=== PATIENT | female | born 2005 ===

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

== ENCOUNTER 2023-02-27 10:18 | Emergency (ER) | payer OTHER, SELFPAY ==
[2023-02-27 10:25] VITALS: BP 138/62; PULSE 93; RESP 18; TEMP 36.7; O2SAT 98; BMI 35.5
--- NOTE | 2023-02-27 10:27 | ED.BURNSMOKE ---
HPI - Burn/Smoke Inhalation General Chief complaint: Burn/Smoke Inhalation Stated complaint: R Hand Burn Work Injury 02/27/23 Time Seen by Provider: 02/27/23 10:22 Source: patient and family Mode of arrival: ambulatory Limitations: no limitations History of Present Illness HPI Narrative: 17-year-old female with history of eczema presents to the ER for evaluation a burn to her right forearm sustained about 15 minutes ago while at work. She states she works at [employer] and hot coffee spilled onto her right distal forearm. It caused immediate pain and burning sensation. She rinse the area and put on ointment that she uses for her eczema. She states she has ongoing burning sensation. No blistering or significant skin color changes. no other injuries. No difficulty extending or flexing the right wrist. MD Complaint: burn Onset (ago): minute(s) Type of Exposure: hot liquid Smoke Inhalation: none Location - Extremities: right: forearm Severity: moderate Severity scale (1-10): 5 Associated symptoms: denies other symptoms Rule if 9: 1. 1% Related Data Allergies Allergy/AdvReac Type Severity Reaction Status Date / Time blue dye [BLUE DYE] Allergy Unknown UNKNOWN Verified 02/27/23 10:28 nut - unspecified [nut] Allergy Unknown UNKNOWN Verified 02/27/23 10:28 pistachio nut [PISTACHIO] Allergy Unknown UNKNOWN Verified 02/27/23 10:28 Review of Systems Review of Systems: Yes all other systems are reviewed and are negative [facility] Social History Social History (System 07/06/21 @ 11:50 by Sosa Jimenez) Advance Directives: No Physical Exam Vital Signs: Vital Signs: Last Vital Signs Temp 98.0 F 02/27/23 10:25 Pulse 93 02/27/23 10:25 Resp 18 02/27/23 10:25 BP 138/62 02/27/23 10:25 Pulse Ox 98 02/27/23 10:25 O2 Del Method Room Air 02/27/23 10:25 BMI result Body Mass Index 35.5 Appearance: Alert. Oriented X3. No acute distress. HEENT: normal inspection CVS: Normal heart rate and rhythm. Pulses normal. Respiratory: No respiratory distress. Skin: Skin warm and dry. Skin with hypopigmentation areas of the upper extremities Normal skin turgor. No rashes.The dorsal aspect of the right distal forearm with mild erythema and tenderness, no blistering, blanches. Extremities: no swelling of the extremities, no joint swelling, normal ROM Neuro: Oriented X 3. No motor deficit. No sensory deficit. Medical Decision Making Medical Decision Making MDM Narrative: 17-year-old female presents the ER for evaluation of a burn to her right forearm sustained with hot coffee 15 minutes prior to arrival. Exam is consistent with a superficial burn with mild erythema, no blistering. It is blanchable with no evidence of deeper penetration. Cool sterile saline was applied. Patient and family counseled on burn management. Stable for discharge home. Differential Diagnosis Differential Diagnoses: The differential diagnosis associated with the presentation includes superficial burn, partial thickness burn, full thickness burn Independent Historian Clinical information obtained from an independent historian. History obtained from or confirmed by: Parent Prescription Management I considered prescription management with: Pain Medication and Antibiotic Chronic Conditions Patient?s care impacted by: Other ( Eczema) Critical Care Time Critical Care Time Critical Care Time: No Discharge Plan Discharge Clinical Impression: First degree burn Patient Disposition: Home, Self-Care Instructions: Superficial Burn (DC) Additional Instructions: use cool compresses as need for pain use topical aloe as needed take motrin or tylenol as needed for pain Stand Alone Forms: Work/School Release
== END 2023-02-27 10:42 | disposition home or self-care (01) ==
PROVIDERS: Emergency Provider Emergency Medicine Emergency Medical Services; PCP Pediatrics
DX: T22.111A Burn of first degree of right forearm, initial encounter (principal); T31.0 Burns involving less than 10% of body surface; X10.0XXA Contact with hot drinks, initial encounter; Y93.89 Activity, other specified; Y92.89 Other specified places as the place of occurrence of the external cause; Y99.9 Unspecified external cause status
CPT/HCPCS: 99282

== ENCOUNTER 2023-06-06 12:35 | Emergency (ER) | payer OTHER, SELFPAY ==
--- NOTE | ~2023-06-06 | XR_ITS ---
EXAMINATION: XR KNEE, RIGHT CLINICAL INFORMATION: Pain COMPARISON: None available. TECHNIQUE: Four views of the right knee. FINDINGS: No fracture or joint effusion. Alignment is anatomic. Joint spaces are maintained. No abnormal soft tissue calcification. XR/XR knee RT 3V IMPRESSION: Normal right knee.
--- NOTE | 2023-06-06 12:40 | ED_ITS ---
HPI - General Adult General Chief complaint: Extremity Injury, Lower Stated complaint: R knee pain Time Seen by Provider: 06/06/23 12:40 Source: patient Mode of arrival: ambulatory Limitations: no limitations History of Present Illness HPI narrative: Patient is a 17 year old assigned female at with no reported medical history presenting to the emergency department today with right knee pain. Patient states that over the last 4 days she has noticed right knee pain. Patient denies any dizziness, lightheadedness, abdominal pain, nausea, vomiting, fever, chills, blurry vision, double vision, loss of vision, chest pain, difficulty breathing, shortness of breath, back pain, night sweats, pain with urination, increased urinary frequency, increased urinary urgency, blood in her urine or stool, syncope or a near syncopal episode, recent trauma or falls, bowel incontinence, bladder incontinence, bowel retention, bladder retention, or any other complaints at this time. Onset (ago): day(s) (4) Location: right and lower extremity Radiation: non-radiation Severity: mild Severity scale (1-10): 3 Quality: aching and dull Pain Consistency: constant Relieving factors: none Exacerbating factors: none Associated symptoms: denies other symptoms Treatments prior to arrival: none Related Data Allergies Allergy/AdvReac Type Severity Reaction Status Date / Time blue dye [BLUE DYE] Allergy Unknown UNKNOWN Verified 02/27/23 10:28 nut - unspecified [nut] Allergy Unknown UNKNOWN Verified 02/27/23 10:28 pistachio nut [PISTACHIO] Allergy Unknown UNKNOWN Verified 02/27/23 10:28 Review of Systems Constitutional: Constitutional: Reports no additional constitutional complaints, Denies chills, Denies fever(s) and Denies night sweats Eyes: Eyes: Reports no additional eye complaints, Denies blurry vision, Denies change in vision, Denies diplopia, Denies eye discharge, Denies loss of vision and Denies eye pain ENT: Denies dizziness Cardiovascular: Cardiovascular: Reports no additional cardiovascular complaints, Denies chest pain, Denies lightheadedness, Denies Loss of Consciousness and Denies dyspnea Respiratory: Respiratory: Reports no additional respiratory complaints and Denies dyspnea Gastrointestinal: Gastrointestinal: Reports no additional gastrointestinal complaints, Denies abdominal pain, Denies melena, Denies hematochezia, Denies change in bowel habits and Denies change in stool character Genitourinary: Genitourinary: Denies hematuria, Denies urinary frequency, Denies dysuria, Denies urinary incontinence, Denies urinary hesitancy and Denies urinary urgency Musculoskeletal: Musculoskeletal: Reports no additional musculoskeletal complaints, Denies numbness and Denies tingling Comments: right knee pain Neurologic: Denies dizziness, Denies loss of vision, Denies numbness and Denies tingling Psychiatric: Psychiatric: Reports no additional psychiatric complaints Endocrine: Endocrine: Reports no additional endocrine complaints Hematologic/Lymphatic: Hematologic/Lymphatic: Reports no additional hematologic/lymphatic complaints Allergic/Immunologic: Allergic/Immunologic: Reports no additional allergic/immunologic complaints PMFSH Past Medical History Attestation statement: The following information was validated with the patient. Source: old records reviewed and nursing notes reviewed Social History Social History Smoked in Last 30 Days: No Use of substances other than those prescribed or required for medical reasons: No Advance Directives: No Advance Directives Information Provided: No Physical Exam ED Vital Signs: Vital Signs - 24 hr 06/06/23 13:04 Temperature 96.7 F L Pulse Rate 86 Respiratory Rate 16 Blood Pressure 115/64 Pulse Oximetry 99 Oxygen Delivery Method Room Air BMI result Body Mass Index 33.9 Const General: cooperative, no acute distress, alert and awake Nutritional Appearance: well nourished Orientation/consciousness: patient oriented x3 Limitations: no limitations HENMT Head: Yes normal to inspection and Yes atraumatic Ears: hearing grossly normal bilaterally and external ears normal General nose exam: Normal external nose present, no nasal discharge noted and no epistaxis Face and sinus: Yes normal facial exam, No abrasion and No laceration Mouth: Normal oral and palatal mucosa present, no drooling and no muffled voice Eyes General: appearance normal, both eyes and all related structures Periorbital: periorbital findings normal Eyelids: Yes eyelids normal Conjunctivae: conjunctivae normal Pupils: Equal, round and reactive pupils present EOM: EOMs intact bilaterally Neck Neck: Yes normal visual inspection, Yes full ROM and Yes no lymphadenopathy Chest Chest palpation & inspection: normal inspection of the chest Resp Effort & Inspection: normal respiratory effort and able to speak in complete sentences GI Inspection: Yes normal to inspection Neuro General: patient oriented x3 and moves all extremities Cranial nerves: Yes Equal, round and reactive pupils present Cognition (Neuro): normal cognition Motor exam (neuro): 5/5 motor strength present throughout Sensory Exam: Normal double simultaneous stimulation for sensation Coordination: [id number] test normal Extrem General: Yes normal to inspection, Yes full ROM and Yes capillary refill normal Psych Appearance: grossly normal Mental Status: mental status grossly normal Affect: normal affect Attitude: cooperative Thought process: Normal thought process present Thought content: Normal thought content present Insight: Good insight present (Psych) Medications Administered Discontinued Medications Generic Name Dose Route Start Last Admin Trade Name Mary PRN Reason Stop Dose Admin Ketorolac Tromethamine 15 mg 06/06/23 14:04 06/06/23 14:21 Ketorolac Tromethamine 15 Mg/Ml Vial IM 06/06/23 14:05 15 mg ONCE ONE Administration Medical Decision Making Medical Decision Making MDM Narrative: Patient is a 17 year old assigned female at with no reported medical history presenting to the emergency department today with right knee pain. Patient's physical exam was unremarkable. Patient's right knee x-ray showed no acute process. I explained my physical exam findings as well as all test results to the patient. I answered all questions asked by the patient. Patient received IM Toradol which she stated helped her symptoms significantly. I stressed the importance of the patient taking her medication as prescribed. I stressed the importance of the patient following up with her primary care provider and an orthopedic provider. I stressed the importance of the patient returning to the emergency department immediately if her symptoms were to worsen or if she were to develop any dizziness, shortness of breath, difficulty breathing, chest pain, blurry vision, loss of vision, nausea, vomiting, abdominal pain, fever, chills, back pain, or any other complaints. Patient verbalized agreement and understanding with this treatment plan and discharge. Differential Diagnosis Differential Diagnoses: The differential diagnosis associated with the presentation includes Right knee pain Osteoarthritis Patellofemoral syndrome Independent Interpretation I performed an independent interpretation of an: Plain X-Ray Interpretation: My interpretation is in agreement with the radiologist's impression of this imaging study. EXAMINATION: XR KNEE, RIGHT CLINICAL INFORMATION: Pain COMPARISON: None available. TECHNIQUE: Four views of the right knee. FINDINGS: No fracture or joint effusion. Alignment is anatomic. Joint spaces are maintained. No abnormal soft tissue calcification. XR/XR knee RT 3V IMPRESSION: Normal right knee. Dictated By: Jennifer Brunner MD Signed By: Electronically signed by Jennifer Brunner MD 06/06/23 7839 Radiology Impression Discussion of test interpretation with radiology: I have reviewed the radiologist's reading. Discharge Plan Discharge Clinical Impression: Knee pain Patient Disposition: Home, Self-Care Instructions: Knee Pain (ED) Additional Instructions: Follow up with your primary care provider. Return to the emergency department immediately if your symptoms worsen or if you develop any dizziness, shortness of breath, difficulty breathing, chest pain, blurry vision, loss of vision, na usea, vomiting, abdominal pain, fever, chills, back pain, or any other complaints. Referrals: [facility] [place] Family Medicine [Provider Group] (Call to establish and follow up with a [facility] care provider. If you already have a primary care provider, please follow up with them.) [facility] [place] Primary Care, Yann [Provider Group] (Call to establish and follow up with a primary care provider. If you already have a primary care provider, please follow up with them.) [facility] [place] Primary Care,Zafar [Provider Group] (Call to establish and follow up with a primary care provider. If you already have a primary care provider, please follow up with them.) [facility] [Provider Group] (Call to establish and follow up with an orthopedic provider.) Stand Alone Forms: Work/School Release Interventions: ED Discharge Assessment Last Done: 06/06/23 14:28 Print Language: Tamazight
[2023-06-06 13:04] VITALS: BP 115/64; PULSE 86; RESP 16; TEMP 35.9; O2SAT 99; BMI 33.9
[2023-06-06] MEDS: Ketorolac Tromethamine 15 MG/ML VIAL IM (14:21)
== END 2023-06-06 14:30 | disposition home or self-care (01) ==
PROVIDERS: Emergency Provider Emergency Medicine Emergency Medical Services; PCP Pediatrics
DX: M25.561 Pain in right knee (principal)
CPT/HCPCS: 73562; 96372; 99284; J1885

== ENCOUNTER 2023-06-16 19:24 | Emergency (ER) | payer OTHER, SELFPAY ==
--- NOTE | ~2023-06-16 | US_ITS ---
EXAMINATION: US PELVIS CLINICAL INFORMATION: Lower pelvic pain. COMPARISON: None available. TECHNIQUE: Ultrasound of the pelvis is performed using transabdominal transducers along with Doppler. Transvaginal imaging was declined by the patient. FINDINGS: Uterus: The uterus is anteverted and measures 7.6 x 3.8 x 5.4 cm. The double wall endometrial thickness is 16 mm. Endometrium is homogeneous The uterus is smooth in contour and has normal myometrial echogenicity. No visible fibroid. Adnexa: Both ovaries are visualized. There is normal color flow to the adnexa. There is no ovarian torsion. There is a small to moderate amount of intraperitoneal free fluid. Right ovary measures 2.4 x 3 x 3.5, 18.7 mL. There is a dominant, simple appearing 2.2 x 2 x 1.9 cm follicular cyst. No follow-up imaging is recommended. Left ovary measures 4.5 x 4 x 3.1 cm, 29.2 mL. There is a dominant 2.7 x 2.5 x 2.7 cm simple appearing cyst. No follow-up imaging is recommended. US/US pelvic complete IMPRESSION: Small to moderate amount of free fluid in the pelvis, possibly physiologic. Otherwise normal pelvic ultrasound. No evidence of ovarian torsion.
[2023-06-16 19:28] VITALS: BP 120/65; PULSE 98; RESP 16; TEMP 36.7; O2SAT 96; BMI 34.7
--- NOTE | 2023-06-16 19:29 | ED_ITS ---
HPI - Abdominal Pain General Chief Complaint: Abdominal Pain Stated Complaint: abd cramping Time Seen by Provider: 06/16/23 21:00 Source: patient Mode of arrival: ambulatory History of Present Illness HPI narrative: Intermittent left lower abdominal pain, denies vaginal discharge, no hematuria or dysuria or frequency, states that she is two weeks into her cycle, no prior history of ovarian cysts MD elicited complaint: abdominal pain Onset (ago): hour(s) Pain Consistency: intermittent Location: LLQ Severity: mild Related Data Previous Rx's Medication Instructions Recorded naproxen 500 mg tablet (Naprosyn) 500 mg PO BID #20 tabs 06/16/23 Allergies Allergy/AdvReac Type Severity Reaction Status Date / Time blue dye [BLUE DYE] Allergy Unknown UNKNOWN Verified 02/27/23 10:28 nut - unspecified [nut] Allergy Unknown UNKNOWN Verified 02/27/23 10:28 pistachio nut [PISTACHIO] Allergy Unknown UNKNOWN Verified 02/27/23 10:28 Review of Systems Review of Systems Yes all other systems are reviewed and are negative Denies Sensory deficit (Neuro) [facility] Social History Social History Alcohol intake: never Smoked in Last 30 Days: No Use of substances other than those prescribed or required for medical reasons: No Advance Directives: No Advance Directives Information Provided: No Patient : No Physical Exam ED Vital Signs: Vital Signs - 24 hr 06/16/23 19:28 06/16/23 20:53 06/16/23 23:16 Temperature 98.0 F 97.8 F 98.5 F Pulse Rate 98 98 98 Respiratory Rate 16 18 18 Blood Pressure 120/65 125/75 121/65 Pulse Oximetry 96 100 99 Oxygen Delivery Method Room Air Room Air Room Air BMI result Body Mass Index 34.7 Const General: healthy appearing Nutritional Appearance: average body habitus Orientation/consciousness: oriented to person and patient oriented x3 Limitations: no limitations HENMT Head: Yes normal to inspection Ears: external ears normal General nose exam: Normal external nose present Mouth: Normal oral and palatal mucosa present and oropharynx normal Throat: Yes posterior oropharynx normal Eyes General: appearance normal, both eyes and all related structures Neck Neck: Yes normal visual inspection Chest Chest palpation & inspection: normal inspection of the chest Resp Auscultation: clear to auscultation bilaterally Cardio Jugular venous distension: no JVD Rate: regular rate Rhythm: regular rhythm Heart sounds: S1 normal heart sound present and S2 normal heart sound present GI Inspection: Yes normal to inspection Palpation (GI): Soft to palpation, nontender and No hepatosplenomegaly present Auscultation: normal bowel sounds General: Yes no CVA tenderness Back/Spine/Pelvis Back: no CVA tenderness Skin General skin exam: no rashes or lesions noted Neuro General: oriented to person and patient oriented x3 Cranial nerves: Yes CN's II-XII intact bilaterally Motor exam (neuro): 5/5 motor strength present throughout Sensory Exam: No Sensory deficit (Neuro) Extrem General: Yes normal to inspection Psych Appearance: grossly normal Course Course Course Narrative: This is an RME: Additional HPI, ROS, PE not included below will be deferred to primary provider. Patient is a 17-year-old male presents emergency department for evaluation 2 days with suprapubic pain described as cramping, Dysuria, LMP 2 weeks ago, denies possibility of . Denies fevers, chills, nausea, vomiting, back pain, hematuria. Plan: Urinalysis, ur preg Reevaluation(s) Reevaluation #1: Patient with bilateral ovarian cysts will dc on NSAIDS, there is small amount of free fluid possibly from ovulation Time: 23:22 Medical Decision Making Differential Diagnosis Differential Diagnoses: The differential diagnosis associated with the presentation includes (ovarian torsion, ovarian cyst, UTI, , ectopic was all considered) Admission/Observation Consideration of admission/observation: Escalation of care including admission/observation considered (upon arrival patient was considered for admission) Lab Data MDM Lab Attestation statement: I reviewed the patient's lab results. (no UTI, no ) Labs: Lab Results 06/16/23 Range/Units 19:49 Urine Color Yellow Urine Appearance Clear Urine pH 6.5 (5.0-9.0) Ur Specific [place] 1.025 (1.005-1.025) Urine Protein Negative (Neg-Trace) mg/dL Urine Glucose (UA) Negative (Negative) mg/dL Urine Ketones Negative (Negative) mg/dL Urine Blood Negative (Negative) Urine Nitrite Negative (Negative) Ur Leukocyte Esterase Negative (Negative) Urine Test NEGATIVE (NEGATIVE) Independent Interpretation I performed an independent interpretation of an: Ultrasound (bilateral ovarian cysts) Radiology Impression Discussion of test interpretation with radiology: I have reviewed the radiologist's reading. (I agree with the reading) Tests considered The following testing was considered but not selected: CT of abdomen considered but patient with bilateral cyst no further imaging needed Prescription Management I considered prescription management with: Antibiotic (no evidence of UTI) Discharge Plan Discharge Clinical Impression: Ovarian cyst Patient Disposition: Home, Self-Care Instructions: Ovarian Cyst (ED) Prescriptions: New naproxen [Naprosyn] 500 mg tablet 500 mg PO BID Qty: 20 0RF Referrals: Nba Wolfe MD [Physician] - 1 week
--- NOTE | 2023-06-16 19:53 | PC.NURSE ---
Pt ambulated into room with a steady gait, AOx3, Pt reporting 7/10 constant cramping abdominal pain in lower abdomen. Pt reports burning with urination, no hx of UTI's. Urine sample collected and sent to lab. Pt aware of plan.
[2023-06-16 19:59] LABS: Appearance Urine Clear; Color Urine Yellow; Glucose Urine UA Negative (Negative); Leukocyte Esterase Urine Negative (Negative); Nitrite Urine Negative (Negative); PH 6.5 (5.0-9.0); Specific Gravity - Urine 1.025 (1.005-1.025); Urine Blood Negative (Negative); Urine Ketones Negative (Negative); Urine Protein Negative (Neg-Trace)
[2023-06-16 20:01] LABS: Urine Pregnancy NEGATIVE (NEGATIVE)
[2023-06-16 20:02] LABS: UPreg QC Valid YES
[2023-06-16 20:53] VITALS: BP 125/75; PULSE 98; RESP 18; TEMP 36.6; O2SAT 100
[2023-06-16 23:16] VITALS: BP 121/65; PULSE 98; RESP 18; TEMP 36.9; O2SAT 99
== END 2023-06-16 23:37 | disposition home or self-care (01) ==
PROVIDERS: Nurse Practitioner Family; Emergency Provider Emergency Medicine; PCP Pediatrics
DX: N83.01 Follicular cyst of right ovary (principal); N83.202 Unspecified ovarian cyst, left side; R10.32 Left lower quadrant pain
CPT/HCPCS: 76856; 81003; 81025; 99284

== ENCOUNTER 2023-06-26 13:51 | Outpatient (AMB) | payer OTHER, SELFPAY ==
--- NOTE | 2023-06-26 13:54 | MHC.OFFVIS ---
Intake Vital Signs 06/26/23 13:58 Height 5 ft 6 in Weight 213 lb 13.574 oz BMI 34.5 BP 118/74 Intake Visit Reasons: ER Follow up/ovarian cyst Personal Care Service Provider Required: No Information Interpreted: non-clinical & clinical Manager Office: Manager Office Present (Nelly GATICA) Accompanied by: Friend Allergies blue dye [BLUE DYE] Allergy (Unknown, Verified 06/26/23 13:59) UNKNOWN nut - unspecified [nut] Allergy (Unknown, Verified 06/26/23 13:59) UNKNOWN pistachio nut [PISTACHIO] Allergy (Unknown, Verified 06/26/23 13:59) UNKNOWN Is last menstrual period known: Yes HPI HPI Comments History of Present Illness Details Presenting for ER follow-up. The patient went to the emergency room with pelvic pain the following workup was done: UA was negative, urine test was negative, pelvic ultrasound was unremarkable except for bilateral small ovarian cyst . Since then the patient's pain has resolved and the patient has no symptoms no urine or GI symptoms no vaginal discharge PFSH Medical History Asthma Eczema Family History Father Asthma Mother Asthma Sister Asthma Social History Household Members: Family Housing: Apartment Alcohol intake: never Patient Tobacco Use Status: Never used Tobacco service: Yes Current occupational status: employed Current occupation: [employer] Sexually active: No Sexual orientation: Straight/Heterosexual Gender identity: Female Physical Exam Vital Signs: Last Vital Signs BP 118/74 06/26/23 13:58 BMI result Body Mass Index 34.5 GI Inspection: Yes normal to inspection Palpation (GI): Soft to palpation and nontender Percussion: Yes normal to percussion Auscultation: normal bowel sounds Other: The patient declined Assessment & Plan Assessment & Plan (1) Simple ovarian cyst: Code(s): N83.209 - Unspecified ovarian cyst, unspecified side Plan: Urine test done in the office was negative. Discussed the patient the finding on ultrasound showing bilateral simple small ovarian cysts with no indication for further follow-up. Instructions given the patient to call or go to emergency room in case of recurrence of her pelvic pain, fever above 100.4, nausea or vomiting or any other concerns. All questions answered, the patient verbalized understanding Coding Level of Care Code New Pt Level 3 (82101) Diagnoses Simple ovarian cyst N83.209
[2023-06-26 13:58] VITALS: BP 118/74; BMI 34.5
== END 2023-06-26 14:19 | disposition home or self-care (01) ==
PROVIDERS: PCP Pediatrics; Visit Provider Obstetrics & Gynecology
DX: N83.209 Unspecified ovarian cyst, unspecified side (principal)
CPT/HCPCS: 99203

== ENCOUNTER → 2023-06-26 13:52 | Outpatient (BNVA) | payer OTHER, SELFPAY | PROVIDERS: PCP Pediatrics; Visit Provider Obstetrics & Gynecology | DX: N83.202 Unspecified ovarian cyst, left side (principal) | CPT/HCPCS: 99202 ==

== ENCOUNTER 2023-07-06 19:44 | Emergency (ER) | payer OTHER, SELFPAY ==
[2023-07-06 19:50] VITALS: BP 96/60; PULSE 94; RESP 18; TEMP 36.3; O2SAT 99; BMI 35.9
--- NOTE | 2023-07-06 19:50 | ED.GENADULT ---
HPI - General Adult General Chief complaint: Ear Problems Stated complaint: R ear pain, clogged unable to hear 1 h ago Time Seen by Provider: 07/06/23 21:56 Source: patient, RN notes reviewed and old records reviewed Mode of arrival: ambulatory Limitations: no limitations History of Present Illness HPI narrative: 17-year-old female presents for evaluation of right ear pain. she reports that she had pain when she woke up this morning but about an hour prior to arrival she could not hear out of the ear she was at her PCP office 2 days ago for a checkup and was told that she has ear wax buildup in the ear there is no drainage from the right ear the patient denies sticking anything in her ear and denies any fevers or chills prior to my evaluation nursing staff removed the excess cerumen with a curette Related Data Previous Rx's Medication Instructions Recorded naproxen 500 mg tablet (Naprosyn) 500 mg PO BID #20 tabs 06/16/23 amoxicillin 500 mg tablet 500 mg PO TID #21 tabs 07/06/23 Allergies Allergy/AdvReac Type Severity Reaction Status Date / Time blue dye [BLUE DYE] Allergy Unknown UNKNOWN Verified 06/26/23 13:59 nut - unspecified [nut] Allergy Unknown UNKNOWN Verified 06/26/23 13:59 pistachio nut [PISTACHIO] Allergy Unknown UNKNOWN Verified 06/26/23 13:59 Review of Systems Constitutional: Constitutional: Denies chills and Denies fever(s) ENT: Denies ear discharge and Reports otalgia Cardiovascular: Cardiovascular: Denies dyspnea Respiratory: Respiratory: Denies cough and Denies dyspnea PMF Past Medical History Medical History Asthma Eczema Family History Family History Father Asthma Mother Asthma Sister Asthma Social History Social History Household Members: Family Housing: Apartment Alcohol intake: never Patient Tobacco Use Status: Never used Tobacco Advance Directives: No Advance Directives Information Provided: No service: Yes Current occupational status: employed Current occupation: [employer] Sexual orientation: Straight/Heterosexual Gender identity: Female Physical Exam ED Vital Signs: Vital Signs - 24 hr 07/06/23 19:50 07/06/23 22:00 Temperature 97.4 F Pulse Rate 94 88 Respiratory Rate 18 20 Blood Pressure 96/60 125/71 Pulse Oximetry 99 98 Oxygen Delivery Method Room Air Room Air BMI result Body Mass Index 35.9 Const General: healthy appearing, comfortable, no acute distress, alert and awake Nutritional Appearance: well nourished Orientation/consciousness: patient oriented x3 HENMT Head: Yes normocephalic and Yes atraumatic Ears: external ears normal, right TM abnormal ( the tympanic membrane erythematous at the 12 o'clock position with bulging) and TM normal on the left Eyes Eyelids: Yes eyelids normal Conjunctivae: conjunctivae normal Sclerae: sclerae normal Corneas: corneas normal Pupils: Equal, round and reactive pupils present EOM: EOMs intact bilaterally Neck Neck: Yes full ROM Resp Effort & Inspection: normal respiratory effort, able to speak in complete sentences and not labored Skin General skin exam: elasticity normal Neuro General: patient oriented x3 Cranial nerves: Yes Equal, round and reactive pupils present and Yes Bilaterally intact EOM present Cognition (Neuro): normal cognition Extrem Other: Moving all extremities well without any obvious deformities Course Course Course Narrative: This is an RME: Additional HPI, ROS, PE not included below will be deferred to primary provider. This is a [age] presenting to the ER with complaints of right ear pain isnce this morning. Pt states that about 1 hour ago her ear became clogged. Unable to visualize TM secondary to wax. Needs to be removed to see TM Plan: ?ear irrigation Medical Decision Making Medical Decision Making MDM Narrative: 16-year-old female presents for evaluation of right ear pain. It appears that she likely had a cerumen impaction of the right heel this was addressed by nursing staff prior to my evaluation. She does have evidence of acute right otitis media. Will treat with amoxicillin. Differential Diagnosis Differential Diagnoses: The differential diagnosis associated with the presentation includes Cerumen impaction Otitis media Otitis externa mastoiditis Discharge Plan Discharge Clinical Impression: Otitis media Patient Disposition: Home, Self-Care Instructions: Ear Infection (ED) Additional Instructions: you appear to have ear wax buildup in your right ear which was removed you still have evidence of an ear infection on the right do not stick anything in your ear including Q-tips take amoxicillin 3 times daily for the next 7 days Prescriptions: New amoxicillin 500 mg tablet 500 mg PO TID Qty: 21 0RF No Action naproxen [Naprosyn] 500 mg tablet 500 mg PO BID Qty: 20 0RF
--- NOTE | 2023-07-06 21:16 | PC.NURSE ---
moderate amount of soft wax removed from right ear canal. TM appears WNL. Provider made aware to reexamine patient. patient tolerated well.
[2023-07-06 22:00] VITALS: BP 125/71; PULSE 88; RESP 20; O2SAT 98
[2023-07-06] MEDS: Amoxicillin 500 MG CAPSULE PO (22:57)
== END 2023-07-06 22:59 | disposition home or self-care (01) ==
PROVIDERS: Emergency Provider Emergency Medicine; PCP Pediatrics
DX: H92.01 Otalgia, right ear (principal); H66.91 Otitis media, unspecified, right ear
CPT/HCPCS: 99282; 99283

== ENCOUNTER 2023-07-25 09:09 | Emergency (ER) | payer OTHER, SELFPAY ==
[2023-07-25 11:04] VITALS: BP 152/70; PULSE 91; RESP 16; TEMP 36.4; O2SAT 100; BMI 35.4
--- NOTE | 2023-07-25 11:07 | ED.GENADULT ---
HPI - General Adult General Chief complaint: General Medical Stated complaint: Sore Throat L Side Head Pain Time Seen by Provider: 07/25/23 13:45 Source: patient Mode of arrival: ambulatory Limitations: no limitations History of Present Illness HPI narrative: Patient is a 17 year old assigned female at with no reported medical history presenting to the emergency department today with a sore throat. Patient states that over the last week she has had a sore throat. Patient denies any dizziness, lightheadedness, abdominal pain, nausea, vomiting, fever, chills, blurry vision, double vision, loss of vision, chest pain, difficulty breathing, shortness of breath, back pain, night sweats, pain with urination, increased urinary frequency, increased urinary urgency, blood in her urine or stool, syncope or a near syncopal episode, recent trauma or falls, bowel incontinence, bladder incontinence, bowel retention, bladder retention, or any other complaints at this time. Onset (ago): week(s) (1) Severity: mild Severity scale (1-10): 3 Quality: aching and dull Pain Consistency: constant Relieving factors: none Exacerbating factors: none Associated symptoms: denies other symptoms Treatments prior to arrival: none Related Data Previous Rx's Medication Instructions Recorded naproxen 500 mg tablet (Naprosyn) 500 mg PO BID #20 tabs 06/16/23 amoxicillin 500 mg tablet 500 mg PO TID #21 tabs 07/06/23 penicillin V potassium 500 mg 500 mg PO BID 10 days #20 tabs 07/25/23 tablet Allergies Allergy/AdvReac Type Severity Reaction Status Date / Time blue dye [BLUE DYE] Allergy Unknown UNKNOWN Verified 07/25/23 11:03 nut - unspecified [nut] Allergy Unknown UNKNOWN Verified 07/25/23 11:03 pistachio nut [PISTACHIO] Allergy Unknown UNKNOWN Verified 07/25/23 11:03 Review of Systems Constitutional: Constitutional: Reports no additional constitutional complaints, Denies chills, Denies fever(s) and Denies night sweats Eyes: Eyes: Reports no additional eye complaints, Denies blurry vision, Denies change in vision, Denies diplopia, Denies eye discharge, Denies loss of vision and Denies eye pain ENT: Denies dizziness and Reports sore throat Cardiovascular: Cardiovascular: Reports no additional cardiovascular complaints, Denies chest pain, Denies lightheadedness, Denies Loss of Consciousness and Denies dyspnea Respiratory: Respiratory: Reports no additional respiratory complaints and Denies dyspnea Gastrointestinal: Gastrointestinal: Reports no additional gastrointestinal complaints, Denies abdominal pain, Denies melena, Denies hematochezia, Denies change in bowel habits and Denies change in stool character Genitourinary: Genitourinary: Denies hematuria, Denies urinary frequency, Denies dysuria, Denies urinary incontinence, Denies urinary hesitancy and Denies urinary urgency Musculoskeletal: Musculoskeletal: Reports no additional musculoskeletal complaints, Denies numbness and Denies tingling Neurologic: Denies dizziness, Denies loss of vision, Denies numbness and Denies tingling Psychiatric: Psychiatric: Reports no additional psychiatric complaints Endocrine: Endocrine: Reports no additional endocrine complaints Hematologic/Lymphatic: Hematologic/Lymphatic: Reports no additional hematologic/lymphatic complaints Allergic/Immunologic: Allergic/Immunologic: Reports no additional allergic/immunologic complaints PMFSH Past Medical History Attestation statement: The following information was validated with the patient. Source: old records reviewed and nursing notes reviewed Medical History Asthma Eczema Family History Family History Father Asthma Mother Asthma Sister Asthma Social History Social History Household Members: Family Housing: Apartment Alcohol intake: never Patient Tobacco Use Status: Never used Tobacco Advance Directives: No Advance Directives Information Provided: No service: Yes Current occupational status: employed Current occupation: [employer] Sexual orientation: Straight/Heterosexual Gender identity: Female Physical Exam ED Vital Signs: Vital Signs - 24 hr 07/25/23 11:04 Temperature 97.6 F Pulse Rate 91 Respiratory Rate 16 Blood Pressure 152/70 H Pulse Oximetry 100 Oxygen Delivery Method Room Air BMI result Body Mass Index 35.4 Const General: cooperative, no acute distress, alert and awake Nutritional Appearance: well nourished Orientation/consciousness: patient oriented x3 Limitations: no limitations HENMT Head: Yes normal to inspection and Yes atraumatic Ears: hearing grossly normal bilaterally and external ears normal General nose exam: Normal external nose present, no nasal discharge noted and no epistaxis Face and sinus: Yes normal facial exam, No abrasion and No laceration Mouth: Normal oral and palatal mucosa present, no drooling and no muffled voice Throat: Yes abnormal tonsil (bilateral swelling and erythema) Eyes General: appearance normal, both eyes and all related structures Periorbital: periorbital findings normal Eyelids: Yes eyelids normal Conjunctivae: conjunctivae normal Pupils: Equal, round and reactive pupils present EOM: EOMs intact bilaterally Neck Neck: Yes normal visual inspection, Yes full ROM and Yes no lymphadenopathy Chest Chest palpation & inspection: normal inspection of the chest Resp Effort & Inspection: normal respiratory effort and able to speak in complete sentences GI Inspection: Yes normal to inspection Neuro General: patient oriented x3 and moves all extremities Cranial nerves: Yes Equal, round and reactive pupils present Cognition (Neuro): normal cognition Motor exam (neuro): 5/5 motor strength present throughout Sensory Exam: Normal double simultaneous stimulation for sensation Coordination: [id number] test normal Extrem General: Yes normal to inspection, Yes full ROM and Yes capillary refill normal Psych Appearance: grossly normal Mental Status: mental status grossly normal Affect: normal affect Attitude: cooperative Thought process: Normal thought process present Thought content: Normal thought content present Insight: Good insight present (Psych) Course Course Course Narrative: This is an RME: Additional HPI, ROS, PE not included below will be deferred to primary provider. This is a 17-year-old female, with a history of asthma, presenting to the emergency department with complaints of sore throat. Vital signs stable. Patient states that the side of her sore throat foot labs, currently reporting left-sided throat pain. Airway patent, oropharynx nonerythematous, nonedematous, uvula is midline. Plan: Viral swabs, strep swab. Further ER evaluation needed Medications Administered Discontinued Medications Generic Name Dose Route Start Last Admin Trade Name Freq PRN Reason Stop Dose Admin Dexamethasone Sodium Phosphate 10 mg 07/25/23 13:50 07/25/23 14:06 Dexamethasone Sod Phosphate 10 Mg/Ml Vial PO 07/25/23 13:51 10 mg ONCE ONE Administration Medical Decision Making Medical Decision Making [facility] Narrative: Patient is a 17 year old assigned female at with no reported medical history presenting to the emergency department today with a sore throat. Patient's physical exam was as noted in the physical exam portion of this note. Patient's COVID/Influenza/RSV and strep tests were negative. I explained my physical exam findings as well as all test results to the patient. I answered all questions asked by the patient. Patient received PO Decadron which she stated helped her symptoms significantly. I stressed the importance of the patient taking her medication as prescribed. I stressed the importance of the patient following up with her primary care provider. I stressed the importance of the patient returning to the emergency department immediately if her symptoms were to worsen or if she were to develop any dizziness, shortness of breath, difficulty breathing, chest pain, blurry vision, loss of vision, nausea, vomiting, abdominal pain, fever, chills, back pain, or any other complaints. Patient verbalized agreement and understanding with this treatment plan and discharge. Differential Diagnosis Differential Diagnoses: The differential diagnosis associated with the presentation includes COVID-19 Influenza RSV strep pharyngitis Pharyngitis Admission/Observation Consideration of admission/observation: Escalation of care including admission/observation considered Patient would have been admitted to the hospital had her work up had any findings where hospital admission was appropriate and her clinical presentation warranted hospital admission. Lab Data MDM Lab Attestation statement: I reviewed the patient's lab results. My interpretation of these studies and their corresponding values is that they are grossly normal. Labs: Lab Results 07/25/23 Range/Units 10:56 Influenza Type A (PCR) NEGATIVE (Negative) Influenza Type B (PCR) NEGATIVE (Negative) RSV RNA Qual (PCR) NEGATIVE (Negative) SARS-CoV-2 RNA (RT-PCR) NEGATIVE (Negative) S. pyogenes GrpA DELMER Negative (Negative) Prescription Management I considered prescription management with: Antibiotic (given patient's clinical presentation, will treat pharyngitis with antibiotic.) Discharge Plan Discharge Clinical Impression: Pharyngitis Patient Disposition: Home, Self-Care Instructions: Pharyngitis (ED) Additional Instructions: Follow up with your primary care provider. Return to the emergency department immediately if your symptoms worsen or if you develop any dizziness, shortness of breath, difficulty breathing, chest pain, blurry vision, loss of vision, nausea, vomiting, abdominal pain, fever, chills, back pain, or any other complaints. Prescriptions: New penicillin V potassium 500 mg tablet 500 mg PO BID 10 Days Qty: 20 0RF No Action naproxen [Naprosyn] 500 mg tablet 500 mg PO BID Qty: 20 0RF amoxicillin 500 mg tablet 500 mg PO TID Qty: 21 0RF Referrals: [facility] [place] Family Medicine [Provider Group] (Call to establish and follow up with a primary care provider. If you already have a primary care provider, please follow up with them.) [facility] [place] [facility] [Provider Group] (Call to establish and follow up with a primary care provider. If you already have a primary care provider, please follow up with them.) [facility] [place] [facility] [Provider Group] (Call to establish and follow up with a primary care provider. If you already have a primary care provider, please follow up with them.) Stand Alone Forms: Work/School Release Interventions: ED Discharge Assessment Last Done: 07/25/23 14:10 Discharge Date/Time: 07/25/23 14:10 Print Language: Latvian
[2023-07-25 11:11] LABS: IDNOW Serial# 08D9AD1C; Strep A Nucleic Acid Negative (Negative)
[2023-07-25 11:42] LABS: Influenza A PCR NEGATIVE (Negative); Influenza B PCR NEGATIVE (Negative); Resp Syncy Virus RNA Qual PCR NEGATIVE (Negative); SARS COV2 PCR INHOUSE NEGATIVE (Negative)
[2023-07-25] MEDS: dexAMETHasone sod phosphate 10 MG/ML VIAL PO (14:06)
== END 2023-07-25 14:10 | disposition home or self-care (01) ==
PROVIDERS: Physician Assistant Medical; Emergency Provider Emergency Medicine Emergency Medical Services; PCP Pediatrics
DX: J02.9 Acute pharyngitis, unspecified (principal); Z20.822 Contact with and (suspected) exposure to COVID-19; Z20.828 Contact with and (suspected) exposure to other viral communicable diseases
CPT/HCPCS: 0241U; 87651; 99282; 99283; J1100

== ENCOUNTER 2023-12-05 10:31 | Outpatient (AMB) | payer OTHER, SELFPAY ==
--- NOTE | 2023-12-05 10:38 | MHC.OFFVIS ---
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 Information Interpreted: non-clinical & clinical Account Support Analyst: Account Support Analyst Present (Nelly Kj GATICA) Accompanied by: Self / Same As Patient Allergies blue dye [BLUE DYE] Allergy (Unknown, Verified 12/05/23 10:41) UNKNOWN nut - unspecified [nut] Allergy (Unknown, Verified 12/05/23 10:41) UNKNOWN pistachio nut [PISTACHIO] Allergy (Unknown, Verified 12/05/23 10:41) UNKNOWN Is last menstrual period known: Yes Last menstrual period: 12/03/23 HPI HPI Comments History of Present Illness Details Presenting complaining of bilateral upper quadrant abdominal pain radiating to the lower pelvis no associated vaginal discharge or urinary or GI symptoms, no fever or chills, no nausea or vomiting. PFSH Medical History Asthma Eczema Family History Father Asthma Mother Asthma Sister Asthma Social History Household Members: Family Housing: Apartment Alcohol intake: never Patient Tobacco Use Status: Never used Tobacco service: Yes Current occupational status: employed Current occupation: [employer] Sexual orientation: Straight/Heterosexual Gender identity: Female Female Reproductive History Menstrual Date of last menstrual period: 12/03/23 Review of Systems Const All systems reviewed & are unremarkable except as noted in HPI and below Physical Exam Vital Signs: Last Vital Signs BP 122/82 12/05/23 10:41 BMI result Body Mass Index 35.2 GI Inspection: Yes normal to inspection Palpation (GI): Soft to palpation, nontender and no guarding General: Yes no CVA tenderness External Female Exam: normal external appearance and normal appearance of the urethra Speculum Exam - Vagina: normal appearance of the vagina, normal palpation, no lesions and no masses Speculum Exam - Cervix: normal appearance of the cervix, normal palpation, no lesions, no masses and nontender Bimanual exam- vagina & uterus: normal bimanual exam, normal palpation, uterine size normal, normal palpation, uterine shape normal, No Cervical tenderness present and non-tender Bimanual Exam- Adnexa, other: normal adnexae Back/Spine/Pelvis Back: no CVA tenderness Assessment & Plan Assessment & Plan (1) Abdominal pain: Code(s): R10.9 - Unspecified abdominal pain Plan: Recommended the patient to call her PCP abhay for further management, meanwhile, in case the pain is worse and gets worse, any fever above 100.4, nausea or vomiting to go to emergency room. All questions answered, the patient verbalized understanding (2) Pelvic pain: Code(s): R10.2 - Pelvic and perineal pain Plan: Urine dip deferred for next visit since the patient is on her menstrual cycle and urine test done in the office was negative. GC and chlamydia and BV panel taken and pelvic ultrasound ordered. Discussed with the patient the differential diagnosis of pelvic pain including but not limited to adnexal, uterine masses, pelvic infections (PID), GI the (Irritable bowel syndrome, diverticulitis, others), musculoskeletal, myofascial pain abdominal wall , endometriosis, psychological and others causes. Will check results and treat accordingly. All questions answered, the patient verbalized understanding. Instructed the patient to schedule follow-up appointment in 2 weeks Orders: Orders US pelvic and transvaginal Today R10.2 - Pelvic and perineal pain Coding Level of Care Code Est Pt Level 3 (15240) Diagnoses Abdominal pain R10.9 Pelvic pain R10.2
[2023-12-05 10:41] VITALS: BP 122/82; BMI 35.2
== END 2023-12-05 13:08 | disposition home or self-care (01) ==
PROVIDERS: PCP Pediatrics; Visit Provider Obstetrics & Gynecology
DX: R10.9 Unspecified abdominal pain (principal); R10.2 Pelvic and perineal pain
CPT/HCPCS: 99213

== ENCOUNTER 2023-12-05 10:31 | Outpatient (REF) | payer OTHER, SELFPAY ==
[2023-12-05 18:00] LABS: CT PCR NOT DETECTED (Not Detect.); NG PCR NOT DETECTED (Not Detect.)
[2023-12-06 12:40] LABS: BV Int Neg Control Negative (Negative); BV Int Pos Control Positive (Positive)
== END 2023-12-05 10:32 | disposition home or self-care (01) ==
LOC: HO.LNP 10:31
PROVIDERS: PCP Pediatrics; Visit Provider Obstetrics & Gynecology
DX: R10.2 Pelvic and perineal pain (principal); R10.9 Unspecified abdominal pain
CPT/HCPCS: 0353U; 87480; 87510; 87660; 99212

== ENCOUNTER 2023-12-13 08:45 | Outpatient (REF) | payer OTHER, SELFPAY ==
[2023-12-13 10:02] LABS: Syphilis Screen Nonreactive (Nonreactive)
[2023-12-13 10:04] LABS: HBsAGNum1 0.42 S/CO (0.00-0.99); HIV AB/AG Nonreactive (Nonreactive); HIV Num 1 0.05 S/CO (0.00-0.99); Hepatitis B Surface Antigen Negative (Negative); ~HepC Num1 0.15 S/CO (0.00-0.79); ~Hepatitis C Antibody Nonreactive (Nonreactive)
== END 2023-12-13 08:46 | disposition home or self-care (01) ==
LOC: HO.LAB 08:45
PROVIDERS: PCP Pediatrics; Visit Provider Obstetrics & Gynecology
DX: Z11.4 Encounter for screening for human immunodeficiency virus [HIV] (principal); N76.0 Acute vaginitis; B96.89 Other specified bacterial agents as the cause of diseases classified elsewhere
CPT/HCPCS: 36415; 86780; 86803; 87340; 87389

== ENCOUNTER 2023-12-13 09:03 | Emergency (ER) | payer OTHER, SELFPAY ==
--- NOTE | ~2023-12-13 | XR_ITS ---
EXAMINATION: XR CHEST CLINICAL INFORMATION: Pain COMPARISON: None available. TECHNIQUE: 2 views of the chest were obtained. FINDINGS: Lungs are well-inflated and clear. Trachea is midline in position. No interstitial disease, consolidation or mass. No pleural effusion or pneumothorax. Cardiac silhouette and pulmonary vessels are normal in size. The mediastinum and elise have normal contour. The ribs have an intact appearance. 13 degrees of thorax dextroscoliosis is measured from the superior plate of T3 to the inferior plate of T10. There are several old mild anterior vertebral endplate depressions in the thoracic spine. No acute osseous injury. XR/XR chest 2V IMPRESSION: Lungs have a normal appearance. No acute cardiopulmonary abnormality. There is mild dextroscoliosis of the thoracic spine.
[2023-12-13 09:22] VITALS: BP 130/76; PULSE 80; RESP 18; TEMP 36.8; O2SAT 100; BMI 33.3
[2023-12-13 09:42] LABS: MANUAL DIFF FLAG NO
[2023-12-13 09:44] LABS: Basophils Percent Auto 0.4 % (0-2); Eosinophils Absolute Auto 0.3 X10*3/uL (0.0-0.4); Eosinophils Percent Auto 4.8 % (0-4); Hematocrit 36.8 % (37.0-47.0); Hemoglobin 12.4 g/dl (12.0-16.0); Imm Gran Abs Auto 0.01 X10*3/uL (0.00-0.03); Imm Gran Pct Auto 0.2 % (0.0-0.4); Lymphocytes Absolute Auto 2.2 X10*3/uL (1.2-4.9); Lymphocytes Percent Auto 39.7 % (20-40); Mean Corpuscular HGB Conc 33.7 g/dl (31.0-35.0); Mean Corpuscular Hemoglobin 29.9 pg (27.0-33.0); Mean Corpuscular Volume 88.7 fL (80.0-98.0); Mean Platelet Volume 9.3 fL (9.4-12.3); Monocytes Absolute Auto 0.4 X10*3/uL (0.1-1.2); Monocytes Percent Auto 7.6 % (2-11); Neutrophils Absolute Auto 2.6 x10*3/uL (2.0-8.3); Neutrophils Percent Auto 47.3 % (45-73); Platelet Count 393 X10*3/uL (160-400); Red Blood Count 4.15 X10*6/uL (4.20-5.50); Red Cell Distribution Width 13.2 % (11.0-16.0); White Blood Count 5.4 X10*3/uL (4.8-10.8)
[2023-12-13 09:46] LABS: Appearance Urine Clear; Color Urine Yellow; Glucose Urine UA Negative (Negative); Leukocyte Esterase Urine Negative (Negative); Nitrite Urine Negative (Negative); PH 8.5 (5.0-9.0); Urine Blood Negative (Negative); Urine Ketones Negative (Negative); Urine Protein Negative (Neg-Trace)
[2023-12-13 09:48] LABS: UPreg QC Valid YES; Urine Pregnancy NEGATIVE (NEGATIVE)
[2023-12-13 10:01] LABS: Alanine Aminotransferase 14 U/L (0-31); Albumin Level 4.3 g/dL (3.5-5.0); Alkaline Phosphatase 50 U/L (39-117); Anion Gap 12 (12-20); Aspartate Amino Transferase 12 U/L (5-31); Bilirubin Total 0.3 mg/dL (0.0-1.0); Blood Urea Nitrogen 9 mg/dL (9-16); Calcium 9.4 mg/dL (8.4-10.2); Carbon Dioxide 26 mmol/L (22-29); Chloride 108 mmol/L (96-108); Creatinine Clr Calc Pharmacy 136.2; Estimated Glomerular Filt Rate > 60; Glucose Random 91 mg/dL (60-115); Potassium 4.1 mmol/L (3.3-5.1); Sodium 142 mmol/L (135-145); Total Protein 7.7 g/dL (6.5-8.0)
--- NOTE | 2023-12-13 12:33 | ED_ITS ---
HPI - General Adult General Chief complaint: General Medical Stated complaint: Sharp pain rib cage Time Seen by Provider: 12/13/23 12:25 Source: patient Mode of arrival: ambulatory Limitations: no limitations History of Present Illness HPI narrative: 18 y/o female with history of ovarian cysts presents to the ER for evaluation of intermittent sharp bilateral lower rib pain for the last 1 week, L>R. She reports the pains come and go, last about an hour and then slowly improve. She has been taking tylenol with some relief. She states the pain woke her from sleep last night. She denies any N/V/D, constipation, flank pain, lower abdominal pain, fever, chills, dysuria, vaginal discharge. No cough, SOB or chest pain. MD complaint: lower anterior rib pain L>R Onset (ago): week(s) (1) Location: chest and abdomen Radiation: non-radiation Severity: moderate Severity scale (1-10): 7 Quality: sharp Pain Consistency: intermittent Relieving factors: medication Exacerbating factors: none Associated symptoms: denies other symptoms Treatments prior to arrival: none Related Data Previous Rx's ?Medication ?Instructions ?Recorded clindamycin phosphate 2 % vaginal 1 appful vaginal BEDTIME 7 days 12/10/23 cream #40 grams ibuprofen 600 mg tablet 600 mg PO Q8H PRN pain #10 tabs 12/13/23 Allergies Allergy/AdvReac Type Severity Reaction Status Date / Time blue dye [BLUE DYE] Allergy Unknown UNKNOWN Verified 12/13/23 09:22 nut - unspecified [nut] Allergy Unknown UNKNOWN Verified 12/13/23 09:22 pistachio nut [PISTACHIO] Allergy Unknown UNKNOWN Verified 12/13/23 09:22 Review of Systems 2 Review of Systems: Yes all other systems are reviewed and are negative [facility] Past Medical History Medical History Asthma Eczema Family History Family History Father Asthma Mother Asthma Sister Asthma Social History Social History Household Members: Family Housing: Apartment Alcohol intake: never Patient Tobacco Use Status: Never used Tobacco Advance Directives: No Do you have a plan to hurt others: No Plan service: Yes Current occupational status: employed Current occupation: [employer] Sexual orientation: Straight/Heterosexual Gender identity: Female Physical Exam ED Vital Signs: Vital Signs - 24 hr 12/13/23 09:22 12/13/23 14:37 Temperature 98.2 F 97.6 F Pulse Rate 80 77 Respiratory Rate 18 18 Blood Pressure 130/76 122/56 L Pulse Oximetry 100 100 Oxygen Delivery Method Room Air Room Air BMI result Body Mass Index 33.3 Appearance: Alert. Oriented X3. No acute distress. Head: normocephalic, atraumatic. Eyes: Pupils equal, round and reactive to light. ENT: Pharynx normal. No tonsillar swelling or exudate. Neck: Normal inspection. Neck supple. CVS: Normal heart rate and rhythm. Pulses normal. Respiratory: No respiratory distress. Breath sounds normal. left lower ribs with mild tenderness Abdomen: Soft with mild LUQ tenderness to deep palpation, nontender epigastric and RUQ, LLQ, RLQ, normal active. +BS x4 Skin: Skin warm and dry. Normal skin color. Normal skin turgor. No rashes. Extremities: No lower extremity edema. No joint swelling. Neuro/psych: Oriented X 3. No motor deficit. No sensory deficit. CN II-XII intact. Normal speech and cognition. Medical Decision Making Medical Decision Making [facility] Narrative: 18 yo female presenting with bilateral lower rib pain x1 week, intermittent and worse on the left side. no N/V/D, constipation, last BM yesterday and was normal. her abdomen is soft and nontender. She has some mild tenderness of the left lower ribs. Lung sounds are clear. Her exam is reassuring. Her lab work shows no leukocytosis, normal renal function. Normal urinalysis. Chest x-ray is also unremarkable. She has no lower abdominal pain or tenderness to suspect enlarging ovarian cyst or torsion. She has no flank pain, no CVA tenderness. No urinary symptoms. Overall her workup was benign. Pain may be muscular. will give trial of NSAIDs and have her follow-up with her primary care doctor. Stable for discharge home with strict return precautions. Differential Diagnosis Differential Diagnoses: The differential diagnosis associated with the presentation includes Constipation, pneumonia, costochondritis, gastritis, pancreatitis, MSK pain Admission/Observation Consideration of admission/observation: Escalation of care including admission/observation considered Lab Data [facility] Lab Attestation statement: I reviewed the patient's lab results. 12/13/23 09:38 12/13/23 09:38 Labs: Lab Results 12/13/23 Range/Units 09:38 WBC 5.4 (4.8-10.8) X10*3/uL RBC 4.15 L (4.20-5.50) X10*6/uL Hgb 12.4 (12.0-16.0) g/dl Hct 36.8 L (37.0-47.0) % MCV 88.7 (80.0-98.0) fL MCH 29.9 (27.0-33.0) pg MCHC 33.7 (31.0-35.0) g/dl RDW 13.2 (11.0-16.0) % Plt Count 393 (160-400) X10*3/uL MPV 9.3 L (9.4-12.3) fL Immature Gran % (Auto) 0.2 (0.0-0.4) % Neut % (Auto) 47.3 (45-73) % Lymph % (Auto) 39.7 (20-40) % [place] % (Auto) 7.6 (2-11) % Eos % (Auto) 4.8 H (0-4) % Baso % (Auto) 0.4 (0-2) % Lymph # (Auto) 2.2 (1.2-4.9) X10*3/uL [place] # (Auto) 0.4 (0.1-1.2) X10*3/uL Eos # (Auto) 0.3 (0.0-0.4) X10*3/uL Baso # (Auto) 0.0 (0.0-0.2) X10*3/uL Abs Immat Gran (auto) 0.01 (0.00-0.03) X10*3/uL Absolute Neuts (auto) 2.6 (2.0-8.3) x10*3/uL Absolute Nucleated RBC 0.000 (0.0-0.012) X10*3/uL Nucleated RBC % (auto) 0.0 (0.0-0.2) /100WBC Sodium 142 (135-145) mmol/L Potassium 4.1 (3.3-5.1) mmol/L Chloride 108 (96-108) mmol/L Carbon Dioxide 26 (22-29) mmol/L Anion Gap 12 (12-20) BUN 9 (9-16) mg/dL Creatinine 0.76 (0.5-1.4) mg/dL Estim Creat Clear Calc 136.2 Estimated GFR > 60 Random Glucose 91 (60-115) mg/dL Calcium 9.4 (8.4-10.2) mg/dL Total Bilirubin 0.3 (0.0-1.0) mg/dL AST 12 (5-31) U/L ALT 14 (0-31) U/L Alkaline Phosphatase 50 (39-117) U/L Total Protein 7.7 (6.5-8.0) g/dL Albumin 4.3 (3.5-5.0) g/dL Urine Color Yellow Urine Appearance Clear Urine pH 8.5 (5.0-9.0) Ur Specific [place] 1.020 (1.005-1.025) Urine Protein Negative (Neg-Trace) mg/dL Urine Glucose (UA) Negative (Negative) mg/dL Urine Ketones Negative (Negative) mg/dL Urine Blood Negative (Negative) Urine Nitrite Negative (Negative) Ur Leukocyte Esterase Negative (Negative) Urine Test NEGATIVE (NEGATIVE) Independent Interpretation I performed an independent interpretation of an: Plain X-Ray Interpretation: normal lungs, no PNA or ANALYTICS CONSULTANT Radiology Impression Discussion of test interpretation with radiology: I have reviewed the radiologist's reading. Radiologist Impression: EXAMINATION: XR CHEST CLINICAL INFORMATION: Pain COMPARISON: None available. TECHNIQUE: 2 views of the chest were obtained. FINDINGS: Lungs are well-inflated and clear. Trachea is midline in position. No interstitial disease, consolidation or mass. No pleural effusion or pneumothorax. Cardiac silhouette and pulmonary vessels are normal in size. The mediastinum and elise have normal contour. The ribs have an intact appearance. 13 degrees of thorax dextroscoliosis is measured from the superior plate of T3 to the inferior plate of T10. There are several old mild anterior vertebral endplate depressions in the thoracic spine. No acute osseous injury. XR/XR chest 2V IMPRESSION: Lungs have a normal appearance. No acute cardiopulmonary abnormality. There is mild dextroscoliosis of the thoracic spine. External Record Review External record reviewed: Office record, Outpatient record, Prior outpatient labs and Prior outpatient radiology Tests considered The following testing was considered but not selected: CT abd/pelvis considered - UA normal, no flank pain. only LUQ tenderness on deep palpation, not an acute abdomen. Prescription Management I considered prescription management with: Pain Medication and Antibiotic Critical Care Time Critical Care Time Critical Care Time: No Discharge Plan Discharge Clinical Impression: Rib pain on left side Patient Disposition: Home, Self-Care Instructions: Abdominal Pain (ED) Additional Instructions: Your x-ray, lab work, urine test are all normal Recommend trial of ibuprofen as needed for pain - take it with food. Take it with food Follow up with your doctor If you develop new or worsening symptoms call 911 or come back to the ER for further evaluation. Prescriptions: New ibuprofen 600 mg tablet 600 mg PO Q8H PRN (Reason: pain) Qty: 10 0RF No Action clindamycin phosphate 2 % cream 1 appful vaginal BEDTIME 7 Days Qty: 40 0RF Referrals: Gee Ryan MD [Primary Care Provider] - Stand Alone Forms: Work/School Release Interventions: ED Discharge Assessment Last Done: 12/13/23 14:37 Discharge Date/Time: 12/13/23 14:39 Print Language: [place]
[2023-12-13 14:37] VITALS: BP 122/56; PULSE 77; RESP 18; TEMP 36.4; O2SAT 100
== END 2023-12-13 14:39 | disposition home or self-care (01) ==
PROVIDERS: Emergency Provider Emergency Medicine; PCP Pediatrics
DX: R07.81 Pleurodynia (principal); Z79.899 Other long term (current) drug therapy
CPT/HCPCS: 36415; 71046; 80053; 81003; 81025; 85025; 99282; 99283

== ENCOUNTER 2023-12-17 11:32 | Outpatient (REF) | payer OTHER, SELFPAY ==
--- NOTE | ~2023-12-17 | US_ITS ---
EXAMINATION: US PELVIS CLINICAL INFORMATION: Pelvic and perineal pain, last menstrual period 12/03/2023, lower abdominal pain. COMPARISON: None available. TECHNIQUE: Transabdominal ultrasound images of the pelvis obtained. Patient declined transvaginal ultrasound images. Limited visualization due to bowel gas and body habitus. FINDINGS: The uterus measures 7.0 x 4.5 x 4.7 cm and is anteverted. Endometrium is echogenic with thickness of 6 mm. No significant free fluid. Right ovary measures 3.4 x 2.0 x 2.2 cm, volume 7.6 mL. 2.0 x 1.7 x 1.3 cm simple right ovarian cyst is likely physiologic. There is no specific indication for additional imaging at this time. Left ovary measures 2.7 x 1.7 x 2.1 cm, volume 5.0 mm and is grossly unremarkable. Limited visualization due to bowel gas and body habitus. US/US pelvic complete IMPRESSION: 1. Endometrium is echogenic with thickness of 6 mm. 2. No significant free fluid. 3. A 2.0 cm simple right ovarian cyst is likely physiologic. There is no specific indication for additional imaging at this time. Patient declined transvaginal ultrasound images. Limited visualization due to bowel gas and body habitus.
== END 2023-12-17 11:33 | disposition home or self-care (01) ==
LOC: HO.US 11:32
PROVIDERS: PCP Pediatrics; Visit Provider Obstetrics & Gynecology
DX: R10.2 Pelvic and perineal pain (principal)
CPT/HCPCS: 76856

== ENCOUNTER 2024-03-04 11:29 | Outpatient (AMB) | payer OTHER, SELFPAY ==
--- NOTE | 2024-03-04 11:55 | A.OFFVIS_ITS ---
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 Urine dip was skipped last visit because the patient was on her menstrual cycle. Urine test was negative. GC/CT were negative. Pelvic ultrasound done showed the following: IMPRESSION: 1. Endometrium is echogenic with thickness of 6 mm. 2. No significant free fluid. 3. A 2.0 cm simple right ovarian cyst is likely physiologic. There is no specific indication for additional imaging at this time. Patient declined transvaginal ultrasound images. Limited visualization due to bowel gas and body habitus. The patient has pain has completely resolved [facility] Medical History Asthma Eczema Family History Father Asthma Mother Asthma Sister Asthma Social History Household Members: Family Housing: Apartment Alcohol intake: never Patient Tobacco Use Status: Never used Tobacco service: Yes Current occupational status: employed Current occupation: [employer] Sexual orientation: Straight/Heterosexual Gender identity: Female Female Reproductive History Menstrual Date of last menstrual period: 02/29/24 Review of Systems Const All systems reviewed & are unremarkable except as noted in HPI and below Reports as per HPI and Reports no additional complaints GI Reports no additional complaints Reports no additional complaints Physical Exam Vital Signs: Last Vital Signs BP 122/80 03/04/24 12:00 BMI result Body Mass Index 33.1 Assessment & Plan Assessment & Plan (1) Pelvic pain: Comment: Resolved Code(s): R10.2 - Pelvic and perineal pain Category: Medical Plan: Discussed with the patient the results of her workup. Instructions given the patient to call if the pain recurs or any other concern. All questions answered, the patient verbalized understanding (2) Microscopic hematuria: Code(s): R31.29 - Other microscopic hematuria Category: Medical Plan: Urine dip showed microscopic hematuria, urine culture sent. Will repeat urine dip in 2 weeks. Discussed with the patient the possible causes of microscopic hematuria including but not limited to: interstitial cystitis, polyps, stones, masses, urethral inflammatory processes and others. If Urine Culture is negative and repeat urine dip in 2 weeks shows persistent microscopic hematuria, will proceed with CT abdomen/pelvis and urology referral. Instructions given the patient to schedule a 2 week urine dip follow-up appointment. All questions answered and the patient verbalized understanding. Coding Level of Care Code Est Pt Level 3 (01700) Diagnoses Pelvic pain R10.2 Microscopic hematuria R31.29
[2024-03-04 12:00] VITALS: BP 122/80; BMI 33.1
== END 2024-03-04 12:09 | disposition home or self-care (01) ==
PROVIDERS: PCP Pediatrics; Visit Provider Obstetrics & Gynecology
DX: R10.2 Pelvic and perineal pain (principal); R31.29 Other microscopic hematuria
CPT/HCPCS: 99213

== ENCOUNTER 2024-03-04 11:29 | Outpatient (REF) | payer OTHER, SELFPAY | END 2024-03-04 11:30 | disposition home or self-care (01) | LOC: HO.LNP 11:29 | PROVIDERS: PCP Pediatrics; Visit Provider Obstetrics & Gynecology | DX: R10.2 Pelvic and perineal pain (principal); R31.29 Other microscopic hematuria | CPT/HCPCS: 81002; 87086; 99212 ==

== ENCOUNTER 2024-03-17 10:48 | Outpatient (AMB) | payer OTHER, SELFPAY ==
[2024-03-17 11:12] VITALS: BMI 33.1
--- NOTE | 2024-03-17 11:12 | MHC.OFFVIS ---
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 The patient is doing well with no complaint [facility] Medical History Asthma Eczema Family History Father Asthma Mother Asthma Sister Asthma Social History Household Members: Family Housing: Apartment Alcohol intake: never Patient Tobacco Use Status: Never used Tobacco service: Yes Current occupational status: employed Current occupation: [employer] Sexual orientation: Straight/Heterosexual Gender identity: Female Review of Systems Const All systems reviewed & are unremarkable except as noted in HPI and below Reports as per HPI and Reports no additional complaints GI Reports no additional complaints Reports no additional complaints Physical Exam Vital Signs: BMI result Body Mass Index 33.1 Results AMB Urinalysis Dipstick UR Leukocytes Trace Last Edit by Nelly Underwood CMA on 03/17/24 11:14 UR Nitrite Negative Last Edit by Nelly Underwood CMA on 03/17/24 11:14 UR Urobilinogen Normal Last Edit by Nelly Underwood CMA on 03/17/24 11:14 UR Protein Trace Last Edit by Nelly Underwood CMA on 03/17/24 11:14 UR Ph 6.0 Last Edit by Nelly Underwood CMA on 03/17/24 11:14 UR Blood Negative Last Edit by Nelly Underwood CMA on 03/17/24 11:14 UR Specific [place] 1.010 Last Edit by Nelly Underwood CMA on 03/17/24 11:14 UR Ketone Negative Last Edit by Nelly Underwood CMA on 03/17/24 11:14 UR Bilirubin Small Last Edit by Nelly Underwood CMA on 03/17/24 11:14 UR Glucose Negative Last Edit by Nelly Underwood CMA on 03/17/24 11:14 Assessment & Plan Assessment & Plan (1) Microscopic hematuria: Comment: Resolved Code(s): R31.29 - Other microscopic hematuria Category: Medical Plan: Urine dip repeated was negative for microscopic hematuria, the patient was reassured. All questions answered, the patient verbalized understanding. Orders: Orders AMB Urinalysis Dipstick Today R31.29 - Other microscopic hematuria Coding Level of Care Code Est Pt Level 3 (15540) Diagnoses Microscopic hematuria R31.29
== END 2024-03-17 12:07 | disposition home or self-care (01) ==
LOC: HO.HWS 10:48
PROVIDERS: PCP Pediatrics; Visit Provider Obstetrics & Gynecology
DX: R31.29 Other microscopic hematuria (principal)
CPT/HCPCS: 99213

== ENCOUNTER → 2024-03-17 10:48 | Outpatient (BNVA) | payer OTHER, SELFPAY | PROVIDERS: PCP Pediatrics; Visit Provider Obstetrics & Gynecology | DX: R31.29 Other microscopic hematuria (principal) | CPT/HCPCS: 81002; 99212 ==

== ENCOUNTER 2024-05-14 19:16 | Emergency (ER) | payer OTHER, SELFPAY ==
[2024-05-14 19:46] VITALS: BP 138/70; PULSE 78; RESP 16; TEMP 36.4; O2SAT 98; BMI 32.3
--- NOTE | 2024-05-14 19:47 | ED.ABDPAIN ---
HPI - Abdominal Pain General Chief Complaint: Abdominal Pain Stated Complaint: abd pain, ? ovarian cyst Time Seen by Provider: 05/14/24 22:54 Source: patient Mode of arrival: ambulatory Limitations: no limitations History of Present Illness ED Provider: Dr. Esparza HPI narrative: 18yo female with history of ovarian cyst and microscopic hematuria who presents with left upper and left lower abdominal pain. Patient states that she stopped taking her control which she was on to help her with her ovarian cysts and since that time she has had worsening pain. Related Data Previous Rx's ?Medication ?Instructions ?Recorded clindamycin phosphate 2 % vaginal 1 appful vaginal BEDTIME 7 days 12/10/23 cream #40 grams ibuprofen 600 mg tablet 600 mg PO Q8H PRN pain #10 tabs 12/13/23 Allergies Allergy/AdvReac Type Severity Reaction Status Date / Time blue dye [BLUE DYE] Allergy Unknown UNKNOWN Verified 05/14/24 19:46 nut - unspecified [nut] Allergy Unknown UNKNOWN Verified 05/14/24 19:46 pistachio nut [PISTACHIO] Allergy Unknown UNKNOWN Verified 05/14/24 19:46 Review of Systems Review of Systems Yes all other systems are reviewed and are negative Denies Sensory deficit (Neuro) PMFSH Past Medical History Medical History Asthma Eczema Family History Family History Father Asthma Mother Asthma Sister Asthma Social History Social History Household Members: Family Housing: Apartment Alcohol intake: never Patient Tobacco Use Status: Never used Tobacco Advance Directives: No Advance Directives Information Provided: No Do you have a plan to hurt others: No Plan service: Yes Current occupational status: employed Current occupation: [employer] Sexual orientation: Straight/Heterosexual Gender identity: Female Physical Exam ED Vital Signs: Vital Signs - 24 hr 05/14/24 19:46 Temperature 97.6 F Pulse Rate 78 Respiratory Rate 16 Blood Pressure 138/70 Pulse Oximetry 98 Oxygen Delivery Method Room Air BMI result Body Mass Index 32.3 Const General: healthy appearing Nutritional Appearance: average body habitus Orientation/consciousness: oriented to person and patient oriented x3 Limitations: no limitations HENMT Head: Yes normal to inspection Ears: external ears normal General nose exam: Normal external nose present Mouth: Normal oral and palatal mucosa present and oropharynx normal Throat: Yes posterior oropharynx normal Eyes General: appearance normal, both eyes and all related structures Neck Neck: Yes normal visual inspection Chest Chest palpation & inspection: normal inspection of the chest Resp Auscultation: clear to auscultation bilaterally Cardio Jugular venous distension: no JVD Rate: regular rate Rhythm: regular rhythm Heart sounds: S1 normal heart sound present and S2 normal heart sound present GI Inspection: Yes normal to inspection Palpation (GI): Soft to palpation, nontender and No hepatosplenomegaly present Auscultation: normal bowel sounds General: Yes no CVA tenderness Back/Spine/Pelvis Back: no CVA tenderness Skin General skin exam: no rashes or lesions noted Neuro General: oriented to person and patient oriented x3 Cranial nerves: Yes CN's II-XII intact bilaterally Motor exam (neuro): 5/5 motor strength present throughout Sensory Exam: No Sensory deficit (Neuro) Extrem General: Yes normal to inspection Psych Appearance: grossly normal Course Course Course Narrative: This is a Rapid Medical Exam performed in triage by Trinh Torre PA-C. Full HPI, ROS and PE to be performed by primary ED provider. 18 yo F with a PMH of simple microscopic hematuria and ovarian cysts presenting to the ED c/o left sided abdominal pain radiating to left lower quadrant since yesterday. LMP 2 weeks ago. Denies dysuria, increased frequency, vaginal bleeding/discharge, n/v. PE: soft nontender, no rebound or guarding Plan: labs, UA Reevaluation(s) Reevaluation #1: Patient with normal physical exam, normal labs, normal urine. Pain likely due to ovulation or ovarian cyst will place on naprosyn and dc home Time: 23:35 Medical Decision Making Differential Diagnosis Differential Diagnoses: The differential diagnosis associated with the presentation includes (UTI, pyelonephritis, ectopic , , ovarian torsion, ovarian cyst, ovulation pain) Admission/Observation Consideration of admission/observation: Escalation of care including admission/observation considered (upon arrival patient was considered for admission) Lab Data 05/14/24 20:33 05/14/24 20:33 Labs: Lab Results 05/14/24 Range/Units 20:33 WBC 9.0 (4.8-10.8) X10*3/uL RBC 4.10 L (4.20-5.50) X10*6/uL Hgb 12.5 (12.0-16.0) g/dl Hct 36.3 L (37.0-47.0) % MCV 88.5 (80.0-98.0) fL MCH 30.5 (27.0-33.0) pg MCHC 34.4 (31.0-35.0) g/dl RDW 12.4 (11.0-16.0) % Plt Count 381 (160-400) X10*3/uL MPV 9.4 (9.4-12.3) fL Immature Gran % (Auto) 0.1 (0.0-0.4) % Neut % (Auto) 43.6 L (45-73) % Lymph % (Auto) 39.9 (20-40) % [place] % (Auto) 6.4 (2-11) % Eos % (Auto) 9.7 H (0-4) % Baso % (Auto) 0.3 (0-2) % Lymph # (Auto) 3.6 (1.2-4.9) X10*3/uL [place] # (Auto) 0.6 (0.1-1.2) X10*3/uL Eos # (Auto) 0.9 H (0.0-0.4) X10*3/uL Baso # (Auto) 0.0 (0.0-0.2) X10*3/uL Abs Immat Gran (auto) 0.01 (0.00-0.03) X10*3/uL Absolute Neuts (auto) 3.9 (2.0-8.3) x10*3/uL Absolute Nucleated RBC 0.000 (0.0-0.012) X10*3/uL Nucleated RBC % (auto) 0.0 (0.0-0.2) /100WBC Sodium 141 (135-145) mmol/L Potassium 3.4 (3.3-5.1) mmol/L Chloride 107 (96-108) mmol/L Carbon Dioxide 24 (22-29) mmol/L Anion Gap 13 (12-20) BUN 10 (9-16) mg/dL Creatinine 0.86 (0.5-1.4) mg/dL Estim Creat Clear Calc 118.3 Estimated GFR > 60 Random Glucose 95 (60-115) mg/dL Calcium 9.8 (8.4-10.2) mg/dL Magnesium 1.9 (1.6-2.6) mg/dL Total Bilirubin 0.2 (0.0-1.0) mg/dL Direct Bilirubin < 0.2 (0.0-0.5) mg/dL AST 15 (5-31) U/L ALT 18 (0-31) U/L Alkaline Phosphatase 56 (39-117) U/L Total Protein 7.8 (6.5-8.0) g/dL Albumin 4.5 (3.5-5.0) g/dL Lipase 12 (8-78) U/L Urine Color Yellow Urine Appearance Clear Urine pH 5.5 (5.0-9.0) Ur Specific [place] 1.010 (1.005-1.025) Urine Protein Negative (Neg-Trace) mg/dL Urine Glucose (UA) Negative (Negative) mg/dL Urine Ketones 15 (Negative) mg/dL Urine Blood Negative (Negative) Urine Nitrite Negative (Negative) Ur Leukocyte Esterase Negative (Negative) Urine Test NEGATIVE (NEGATIVE) Independent Historian Clinical information obtained from an independent historian. 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 Prescription Management I considered prescription management with: Antibiotic (UA negative for infection) Discharge Plan Discharge Clinical Impression: Abdominal pain, Pelvic pain Patient Disposition: Home, Self-Care Instructions: Pelvic Pain in Women (ED), Abdominal Pain (ED), Pelvic Pain (ED) Additional Instructions: you should restart your control as soon as possible Prescriptions: No Action clindamycin phosphate 2 % cream 1 appful vaginal BEDTIME 7 Days Qty: 40 0RF ibuprofen 600 mg tablet 600 mg PO Q8H PRN (Reason: pain) Qty: 10 0RF Referrals: Physician,Unknown J [Physician] - 5 days Print Language: [place]ian
--- NOTE | 2024-05-14 20:29 | MHC.EDTECH ---
Patient brought into triage area,labs,and urine obtained and sent to lab.
[2024-05-14 20:39] LABS: MANUAL DIFF FLAG NO
[2024-05-14 20:40] LABS: Basophils Percent Auto 0.3 % (0-2); Eosinophils Absolute Auto 0.9 X10*3/uL (0.0-0.4); Eosinophils Percent Auto 9.7 % (0-4); Hematocrit 36.3 % (37.0-47.0); Hemoglobin 12.5 g/dl (12.0-16.0); Imm Gran Abs Auto 0.01 X10*3/uL (0.00-0.03); Imm Gran Pct Auto 0.1 % (0.0-0.4); Lymphocytes Absolute Auto 3.6 X10*3/uL (1.2-4.9); Lymphocytes Percent Auto 39.9 % (20-40); Mean Corpuscular HGB Conc 34.4 g/dl (31.0-35.0); Mean Corpuscular Hemoglobin 30.5 pg (27.0-33.0); Mean Corpuscular Volume 88.5 fL (80.0-98.0); Mean Platelet Volume 9.4 fL (9.4-12.3); Monocytes Absolute Auto 0.6 X10*3/uL (0.1-1.2); Monocytes Percent Auto 6.4 % (2-11); Neutrophils Absolute Auto 3.9 x10*3/uL (2.0-8.3); Neutrophils Percent Auto 43.6 % (45-73); Platelet Count 381 X10*3/uL (160-400); Red Cell Distribution Width 12.4 % (11.0-16.0)
[2024-05-14 20:41] LABS: Appearance Urine Clear; Color Urine Yellow; Glucose Urine UA Negative (Negative); Leukocyte Esterase Urine Negative (Negative); Nitrite Urine Negative (Negative); PH 5.5 (5.0-9.0); Urine Blood Negative (Negative); Urine Ketones 15 mg/dL (Negative); Urine Protein Negative (Neg-Trace)
[2024-05-14 20:42] LABS: UPreg QC Valid YES; Urine Pregnancy NEGATIVE (NEGATIVE)
[2024-05-14 21:00] LABS: Alanine Aminotransferase 18 U/L (0-31); Albumin Level 4.5 g/dL (3.5-5.0); Alkaline Phosphatase 56 U/L (39-117); Anion Gap 13 (12-20); Aspartate Amino Transferase 15 U/L (5-31); Bilirubin Direct < 0.2 mg/dL (0.0-0.5); Bilirubin Total 0.2 mg/dL (0.0-1.0); Blood Urea Nitrogen 10 mg/dL (9-16); Calcium 9.8 mg/dL (8.4-10.2); Carbon Dioxide 24 mmol/L (22-29); Chloride 107 mmol/L (96-108); Creatinine Clr Calc Pharmacy 118.3; Estimated Glomerular Filt Rate > 60; Glucose Random 95 mg/dL (60-115); Lipase 12 U/L (8-78); Magnesium 1.9 mg/dL (1.6-2.6); Potassium 3.4 mmol/L (3.3-5.1); Sodium 141 mmol/L (135-145); Total Protein 7.8 g/dL (6.5-8.0)
[2024-05-14 23:45] VITALS: BP 108/55; PULSE 85; RESP 18; TEMP 36.5; O2SAT 98
[2024-05-15 00:56] VITALS: BP 108/55; PULSE 85; RESP 18; TEMP 36.5; O2SAT 98
== END 2024-05-15 00:15 | disposition home or self-care (01) ==
PROVIDERS: Physician Assistant; Emergency Provider Emergency Medicine; PCP Pediatrics
DX: R10.2 Pelvic and perineal pain (principal); R10.12 Left upper quadrant pain; R10.32 Left lower quadrant pain; J45.909 Unspecified asthma, uncomplicated
CPT/HCPCS: 36415; 80048; 80076; 81003; 81025; 83690; 83735; 85025; 99283; 99284

== ENCOUNTER 2024-05-26 01:08 | Emergency (ER) | payer OTHER, SELFPAY ==
--- NOTE | ~2024-05-26 | US_ITS ---
EXAMINATION: US PELVIS CLINICAL INFORMATION: History of ovarian cysts both sides COMPARISON: 12/17/2023 TECHNIQUE: Ultrasound of the pelvis is performed using both transabdominal and transvaginal transducers along with Doppler. Transvaginal imaging is performed due to inadequate visualization transabdominally. Technically challenging exam due to overlying bowel gas. FINDINGS: Uterus: The uterus is anteverted and measures 6.8 x 4.3 x 5.2 cm. The double wall endometrial thickness is 0.6 mm. The uterus is smooth in contour and has normal myometrial echogenicity. No visible fibroid. Adnexa: Both ovaries are visualized. There is normal color flow to the adnexa. There is no ovarian torsion. There is no pelvic ascites or fluid collection. Limited evaluation of the right ovary. Right ovary measures 3.4 x 2.0 x 2.2 cm. 1.9 cm follicle in the right ovary. Spectral and color Doppler waveforms are not clearly visualized within the right ovary which may be due to technical limitations. Left ovary measures 2.4 x 1.6 x 1.6 cm. Normal color Doppler and spectral Doppler flow in the left ovary. US/US pelvic and transvaginal IMPRESSION: Unremarkable pelvic ultrasound. Electronically signed by: Jone Phillip MD 05/26/2024 09:51 AM EDT
--- NOTE | ~2024-05-26 | US_ITS ---
EXAMINATION: US PELVIS CLINICAL INFORMATION: History of ovarian cysts both sides COMPARISON: 12/17/2023 TECHNIQUE: Ultrasound of the pelvis is performed using both transabdominal and transvaginal transducers along with Doppler. Transvaginal imaging is performed due to inadequate visualization transabdominally. Technically challenging exam due to overlying bowel gas. FINDINGS: Uterus: The uterus is anteverted and measures 6.8 x 4.3 x 5.2 cm. The double wall endometrial thickness is 0.6 mm. The uterus is smooth in contour and has normal myometrial echogenicity. No visible fibroid. Adnexa: Both ovaries are visualized. There is normal color flow to the adnexa. There is no ovarian torsion. There is no pelvic ascites or fluid collection. Limited evaluation of the right ovary. Right ovary measures 3.4 x 2.0 x 2.2 cm. 1.9 cm follicle in the right ovary. Spectral and color Doppler waveforms are not clearly visualized within the right ovary which may be due to technical limitations. Left ovary measures 2.4 x 1.6 x 1.6 cm. Normal color Doppler and spectral Doppler flow in the left ovary. US/US pelvic ovarian doppler IMPRESSION: Unremarkable pelvic ultrasound. Electronically signed by: Jone Phillip MD 05/26/2024 09:51 AM EDT
[2024-05-26 01:28] VITALS: BP 129/72; PULSE 92; RESP 18; TEMP 36.9; O2SAT 100; BMI 32.4
[2024-05-26 01:40] LABS: MANUAL DIFF FLAG NO
[2024-05-26 01:41] LABS: Basophils Percent Auto 0.2 % (0-2); Eosinophils Absolute Auto 0.6 X10*3/uL (0.0-0.4); Eosinophils Percent Auto 7.4 % (0-4); Hematocrit 34.9 % (37.0-47.0); Imm Gran Abs Auto 0.03 X10*3/uL (0.00-0.03); Imm Gran Pct Auto 0.3 % (0.0-0.4); Lymphocytes Absolute Auto 3.8 X10*3/uL (1.2-4.9); Lymphocytes Percent Auto 44.1 % (20-40); Mean Corpuscular HGB Conc 34.4 g/dl (31.0-35.0); Mean Corpuscular Hemoglobin 30.5 pg (27.0-33.0); Mean Corpuscular Volume 88.8 fL (80.0-98.0); Mean Platelet Volume 9.3 fL (9.4-12.3); Monocytes Absolute Auto 0.5 X10*3/uL (0.1-1.2); Monocytes Percent Auto 6.2 % (2-11); Neutrophils Absolute Auto 3.6 x10*3/uL (2.0-8.3); Neutrophils Percent Auto 41.8 % (45-73); Platelet Count 403 X10*3/uL (160-400); Red Blood Count 3.93 X10*6/uL (4.20-5.50); Red Cell Distribution Width 12.4 % (11.0-16.0); White Blood Count 8.7 X10*3/uL (4.8-10.8)
[2024-05-26 02:05] LABS: Alanine Aminotransferase 18 U/L (0-31); Albumin Level 4.3 g/dL (3.5-5.0); Alkaline Phosphatase 52 U/L (39-117); Anion Gap 14 (12-20); Aspartate Amino Transferase 17 U/L (5-31); Bilirubin Total 0.2 mg/dL (0.0-1.0); Blood Urea Nitrogen 11 mg/dL (9-16); Calcium 9.6 mg/dL (8.4-10.2); Carbon Dioxide 23 mmol/L (22-29); Chloride 106 mmol/L (96-108); Creatinine Clr Calc Pharmacy 118.7; Estimated Glomerular Filt Rate > 60; Glucose Random 105 mg/dL (60-115); Potassium 3.9 mmol/L (3.3-5.1); Sodium 139 mmol/L (135-145); Total Protein 7.5 g/dL (6.5-8.0)
[2024-05-26 07:11] VITALS: BP 127/59; PULSE 84; RESP 16; TEMP 36.4; O2SAT 100
[2024-05-26 08:40] VITALS: BP 121/70; PULSE 94; RESP 18; TEMP 36.3; O2SAT 100
--- NOTE | 2024-05-26 08:41 | ED.GENADULT ---
HPI - General Adult General Chief complaint: General Medical Stated complaint: Ovarian cyst pain Time Seen by Provider: 05/26/24 08:28 Source: patient and old records reviewed Mode of arrival: ambulatory Limitations: no limitations History of Present Illness ED Provider: MORGAN HOPSON narrative: 18 yo female with PMH of ovarian cysts on OCPs did note she was off for a week about a month ago and for the last few weeks has had pelvic cramping and pain that won't go away. No n/v/d dysuria or discharge. no breakthrough bleeding. No fevers. No concern for STI. she is worried she has another cyst. complaint: pelvic pain Onset (ago): week(s) (3) Location: pelvis Radiation: non-radiation Severity: moderate Quality: aching Pain Consistency: intermittent Relieving factors: none Exacerbating factors: none Associated symptoms: denies other symptoms Treatments prior to arrival: none Related Data Previous Rx's ?Medication ?Instructions ?Recorded clindamycin phosphate 2 % vaginal 1 appful vaginal BEDTIME 7 days 12/10/23 cream #40 grams ibuprofen 600 mg tablet 600 mg PO Q8H PRN pain #10 tabs 12/13/23 Allergies Allergy/AdvReac Type Severity Reaction Status Date / Time blue dye [BLUE DYE] Allergy Unknown UNKNOWN Verified 05/26/24 01:29 nut - unspecified [nut] Allergy Unknown UNKNOWN Verified 05/26/24 01:29 pistachio nut [PISTACHIO] Allergy Unknown UNKNOWN Verified 05/26/24 01:29 Review of Systems Review of Systems: Constitutional : No Weight loss, No Fever, No Chills ENT/Mouth : No sore throat, No Rhinorrhea Eyes: No Swelling, No Redness Cardiovascular : No Chest Pain, No SOB, NoEdema Respiratory : No Cough, No Sputum, No Wheezing Gastrointestinal : no Nausea, no Vomiting, no Diarrhea, positive abdominal Pain, No Hematochezia, No Melena Genitourinary : No Dysuria, No Urinary Frequency, No Hematuria, No Urgency Musculoskeletal : No joint pain, No Myalgias, No Joint Swelling Skin : No Skin Lesions, No rash Neuro : No Weakness, No Numbness, No Dizziness, No Headache All other systems reviewed and are negative. [facility] Past Medical History Attestation statement: The following information was validated with the patient. Source: old records reviewed Medical History Asthma Eczema Family History Family History Father Asthma Mother Asthma Sister Asthma Social History Social History Household Members: Family Housing: Apartment Alcohol intake: never Patient Tobacco Use Status: Never used Tobacco Smoked in Last 30 Days: No Use of substances other than those prescribed or required for medical reasons: No Advance Directives: No Advance Directives Information Provided: Yes Patient : No service: Yes Current occupational status: employed Current occupation: [employer] Sexual orientation: Straight/Heterosexual Gender identity: Female Physical Exam ED Vital Signs: Vital Signs - 24 hr 05/26/24 01:28 05/26/24 07:11 05/26/24 08:40 Temperature 98.4 F 97.6 F 97.4 F Pulse Rate 92 84 94 Respiratory Rate 18 16 18 Blood Pressure 129/72 127/59 L 121/70 Pulse Oximetry 100 100 100 Oxygen Delivery Method Room Air Room Air Room Air BMI result Body Mass Index 32.4 Appearance: Alert. Oriented X3. No acute distress. Eyes: Pupils equal, round and reactive to light. ENT: Pharynx normal. Neck: Normal inspection. Neck supple. CVS: Normal heart rate and rhythm. Pulses normal. Respiratory: No respiratory distress. Breath sounds normal. Abdomen: Soft and mild suprapubic ttp no rebound or guarding Skin: Skin warm and dry. Normal skin color. Normal skin turgor. Extremities: No lower extremity edema. No calf ttp Neuro: Oriented X 3. No motor deficit. No sensory deficit. Medical Decision Making Medical Decision Making [facility] Narrative: 18 yo female with PMH of ovarian cysts on OCPs here with c/o pelvic pain x 3 weeks without associated GI and symptoms at this time will need basic labs and pelvic US doubt appendicitis or infection given 3 weeks of symptoms. Suspect it could also be pelvic congestion syndrome given chronicity. Differential Diagnosis Differential Diagnoses: The differential diagnosis associated with the presentation includes ovarian cyst, pelvic congestion syndrome, adamantly denies concerns for STI Admission/Observation Consideration of admission/observation: Escalation of care including admission/observation considered labs normal and US negative with 3 weeks of symptoms Lab Data [facility] Lab Attestation statement: I reviewed the patient's lab results. 05/26/24 01:37 05/26/24 01:37 Labs: Lab Results 05/26/24 05/26/24 Range/Units 01:37 08:43 WBC 8.7 (4.8-10.8) X10*3/uL RBC 3.93 L (4.20-5.50) X10*6/uL Hgb 12.0 (12.0-16.0) g/dl Hct 34.9 L (37.0-47.0) % MCV 88.8 (80.0-98.0) fL MCH 30.5 (27.0-33.0) pg MCHC 34.4 (31.0-35.0) g/dl RDW 12.4 (11.0-16.0) % Plt Count 403 H (160-400) X10*3/uL MPV 9.3 L (9.4-12.3) fL Immature Gran % (Auto) 0.3 (0.0-0.4) % Neut % (Auto) 41.8 L (45-73) % Lymph % (Auto) 44.1 H (20-40) % [place] % (Auto) 6.2 (2-11) % Eos % (Auto) 7.4 H (0-4) % Baso % (Auto) 0.2 (0-2) % Lymph # (Auto) 3.8 (1.2-4.9) X10*3/uL [place] # (Auto) 0.5 (0.1-1.2) X10*3/uL Eos # (Auto) 0.6 H (0.0-0.4) X10*3/uL Baso # (Auto) 0.0 (0.0-0.2) X10*3/uL Abs Immat Gran (auto) 0.03 (0.00-0.03) X10*3/uL Absolute Neuts (auto) 3.6 (2.0-8.3) x10*3/uL Absolute Nucleated RBC 0.000 (0.0-0.012) X10*3/uL Nucleated RBC % (auto) 0.0 (0.0-0.2) /100WBC Sodium 139 (135-145) mmol/L Potassium 3.9 (3.3-5.1) mmol/L Chloride 106 (96-108) mmol/L Carbon Dioxide 23 (22-29) mmol/L Anion Gap 14 (12-20) BUN 11 (9-16) mg/dL Creatinine 0.86 (0.5-1.4) mg/dL Estim Creat Clear Calc 118.7 Estimated GFR > 60 Random Glucose 105 (60-115) mg/dL Calcium 9.6 (8.4-10.2) mg/dL Total Bilirubin 0.2 (0.0-1.0) mg/dL AST 17 (5-31) U/L ALT 18 (0-31) U/L Alkaline Phosphatase 52 (39-117) U/L Total Protein 7.5 (6.5-8.0) g/dL Albumin 4.3 (3.5-5.0) g/dL Urine Color Yellow Urine Appearance Clear Urine pH 6.5 (5.0-9.0) Ur Specific [place] 1.020 (1.005-1.025) Urine Protein Negative (Neg-Trace) mg/dL Urine Glucose (UA) Negative (Negative) mg/dL Urine Ketones Negative (Negative) mg/dL Urine Blood Negative (Negative) Urine Nitrite Negative (Negative) Ur Leukocyte Esterase Negative (Negative) Urine RBC 0-2 (0-2) /HPF Urine WBC 0-5 (0-5) /HPF Ur Squamous Epith Cells 3-5 (0-2) /HPF Urine Bacteria Trace (None Seen) Hyaline Casts 0-2 (0-2) /LPF Urine Test NEGATIVE (NEGATIVE) Independent Interpretation I performed an independent interpretation of an: Ultrasound (normal ) Radiology Impression Discussion of test interpretation with radiology: I have reviewed the radiologist's reading. External Record Review External record reviewed: Outpatient record and Prior outpatient radiology Discharge Plan Discharge Clinical Impression: Pelvic pain Patient Disposition: Home, Self-Care Instructions: Pelvic Pain (ED) Additional Instructions: labs and urine reassuring no findings on ultrasound today please follow up with your OBGYN return for any worsening symptoms or concerns FINDINGS: Uterus: The uterus is anteverted and measures 6.8 x 4.3 x 5.2 cm. The double wall endometrial thickness is 0.6 mm. The uterus is smooth in contour and has normal myometrial echogenicity. No visible fibroid. Adnexa: Both ovaries are visualized. There is normal color flow to the adnexa. There is no ovarian torsion. There is no pelvic ascites or fluid collection. Limited evaluation of the right ovary. Right ovary measures 3.4 x 2.0 x 2.2 cm. 1.9 cm follicle in the right ovary. Spectral and color Doppler waveforms are not clearly visualized within the right ovary which may be due to technical limitations. Left ovary measures 2.4 x 1.6 x 1.6 cm. Normal color Doppler and spectral Doppler flow in the left ovary. US/US pelvic and transvaginal IMPRESSION: Unremarkable pelvic ultrasound. Prescriptions: No Action clindamycin phosphate 2 % cream 1 appful vaginal BEDTIME 7 Days Qty: 40 0RF ibuprofen 600 mg tablet 600 mg PO Q8H PRN (Reason: pain) Qty: 10 0RF Stand Alone Forms: Work/School Release Print Language: Cook Islander
[2024-05-26 08:54] LABS: Appearance Urine Clear; Color Urine Yellow; Glucose Urine UA Negative (Negative); Leukocyte Esterase Urine Negative (Negative); Nitrite Urine Negative (Negative); PH 6.5 (5.0-9.0); Urine Blood Negative (Negative); Urine Ketones Negative (Negative); Urine Protein Negative (Neg-Trace)
[2024-05-26 08:56] LABS: UPreg QC Valid YES; Urine Pregnancy NEGATIVE (NEGATIVE)
[2024-05-26 09:09] LABS: Bacteria Urine Trace (None Seen); Hyaline Casts Urine 0-2 /LPF (0-2); RBC Urine 0-2 /HPF (0-2); WBC Urine 0-5 /HPF (0-5)
[2024-05-26 11:01] VITALS: BP 121/70; PULSE 94; RESP 18; TEMP 36.3; O2SAT 100
== END 2024-05-26 11:02 | disposition home or self-care (01) ==
PROVIDERS: Emergency Provider Emergency Medicine; PCP Pediatrics
DX: R10.2 Pelvic and perineal pain (principal)
CPT/HCPCS: 36415; 76830; 76856; 80053; 81001; 81025; 85025; 93975; 99284

== ENCOUNTER 2024-10-18 23:16 | Emergency (ER) | payer OTHER, SELFPAY ==
--- NOTE | ~2024-10-18 | US_ITS ---
CLINICAL HISTORY: Right suprapubic pain? Ovarian cyst US pelvis transvaginal and transabdominal with Doppler Comparison: US/ND/SR - US PELVIC AND TRANSVAGINAL - 05/26/24 08:46 EDT Findings: Transvaginal scanning performed. Uterus is 8.8 cm length. Normal myometrium. Endometrium 4 mm thickness. Right ovary 2.8 x 1.2 x 1.7 cm. Left ovary 2.2 x 0.8 x 1.1 cm. Normal color Doppler of both ovaries. Trace fluid in the cul-de-sac. IMPRESSION: 1. Normal pelvic ultrasound This document has been electronically signed by: Shahbaz Perla MD on 10/19/2024 01:11:56
[2024-10-18 23:20] VITALS: BP 135/79; PULSE 94; RESP 16; TEMP 36.7; O2SAT 100; BMI 30.6
[2024-10-18 23:31] LABS: MANUAL DIFF FLAG NO
[2024-10-18 23:32] LABS: Basophils Percent Auto 0.4 % (0-2); Eosinophils Absolute Auto 0.5 X10*3/uL (0.0-0.4); Eosinophils Percent Auto 6.4 % (0-4); Hemoglobin 12.1 g/dl (12.0-16.0); Imm Gran Abs Auto 0.02 X10*3/uL (0.00-0.03); Imm Gran Pct Auto 0.3 % (0.0-0.4); Lymphocytes Absolute Auto 4.1 X10*3/uL (1.2-4.9); Lymphocytes Percent Auto 51.6 % (20-40); Mean Corpuscular HGB Conc 34.6 g/dl (31.0-35.0); Mean Corpuscular Hemoglobin 30.7 pg (27.0-33.0); Mean Corpuscular Volume 88.8 fL (80.0-98.0); Mean Platelet Volume 9.1 fL (9.4-12.3); Monocytes Absolute Auto 0.7 X10*3/uL (0.1-1.2); Monocytes Percent Auto 8.3 % (2-11); Neutrophils Absolute Auto 2.6 x10*3/uL (2.0-8.3); Platelet Count 447 X10*3/uL (160-400); Red Blood Count 3.94 X10*6/uL (4.20-5.50); Red Cell Distribution Width 12.7 % (11.0-16.0); White Blood Count 7.9 X10*3/uL (4.8-10.8)
[2024-10-18 23:48] LABS: Alanine Aminotransferase 30 U/L (0-31); Albumin Level 4.2 g/dL (3.5-5.0); Alkaline Phosphatase 62 U/L (39-117); Anion Gap 13 (12-20); Aspartate Amino Transferase 20 U/L (5-31); Bilirubin Total 0.2 mg/dL (0.0-1.0); Blood Urea Nitrogen 7 mg/dL (9-16); Calcium 9.3 mg/dL (8.4-10.2); Carbon Dioxide 22 mmol/L (22-29); Chloride 108 mmol/L (96-108); Creatinine Clr Calc Pharmacy 141.7; Estimated Glomerular Filt Rate > 60; Glucose Random 96 mg/dL (60-115); Lipase 18 U/L (8-78); Potassium 3.5 mmol/L (3.3-5.1); Sodium 139 mmol/L (135-145); Total Protein 7.7 g/dL (6.5-8.0)
--- NOTE | 2024-10-19 01:08 | ED.ABDPAIN ---
HPI - Abdominal Pain General Chief Complaint: Abdominal Pain Stated Complaint: abd pain Time Seen by Provider: 10/18/24 23:40 Source: patient Mode of arrival: ambulatory Limitations: no limitations History of Present Illness ED Provider: HPI narrative: Patient's history of ovarian cyst complaining of pain in the right lower abdomen and suprapubic area for last 3 days no nausea no vomiting no fever no chills no urinary symptoms patient was at [facility] a month ago had diagnose with a gallstones patient has denied pain in the upper abdomen Related Data Previous Rx's ?Medication ?Instructions ?Recorded clindamycin phosphate 2 % vaginal 1 appful vaginal BEDTIME 7 days 12/10/23 cream #40 grams ibuprofen 600 mg tablet 600 mg PO Q8H PRN pain #10 tabs 12/13/23 Allergies Allergy/AdvReac Type Severity Reaction Status Date / Time blue dye [BLUE DYE] Allergy Unknown UNKNOWN Verified 10/18/24 23:21 nut - unspecified [nut] Allergy Unknown UNKNOWN Verified 10/18/24 23:21 pistachio nut [PISTACHIO] Allergy Unknown UNKNOWN Verified 10/18/24 23:21 Review of Systems Review of Systems Yes all other systems are reviewed and are negative PMFSH Past Medical History Medical History Asthma Eczema Family History Family History Father Asthma Mother Asthma Sister Asthma Social History Social History Household Members: Family Housing: Apartment Alcohol intake: never Patient Tobacco Use Status: Never used Tobacco Advance Directives: No Do you have a plan to hurt others: No Plan service: Yes Current occupational status: employed Current occupation: [employer] Sexual orientation: Straight/Heterosexual Gender identity: Female Physical Exam ED Vital Signs: Vital Signs - 24 hr 10/18/24 23:20 10/19/24 01:41 Temperature 98.1 F 98.0 F Pulse Rate 94 87 Respiratory Rate 16 16 Blood Pressure 135/79 110/56 L Pulse Oximetry 100 100 Oxygen Delivery Method Room Air Room Air BMI result Body Mass Index 30.6 Appearance: Alert. Oriented X3. No acute distress. Eyes: PERRLA, No Nystagmus ENT: Pharynx normal. Oral Mucosa moist Neck: Normal inspection. Neck supple. CVS: Normal heart rate and rhythm. Pulses normal. Respiratory: No respiratory distress. Equal air entry bilateral, no wheezing/rales/rhonchi Abdomen: Soft mild deep tenderness right suprapubic area , Bowel sounds are present, no mass palpable, no CVA tenderness Skin: Skin warm and dry. Normal skin color. Normal skin turgor. Extremities: No lower extremity edema. No calf tenderness Neuro: Oriented X 3. Medical Decision Making Medical Decision Making [facility] Narrative: Patient was done that is suprapubic pain ultrasound negative for any ovarian cysts just showed small amount of fluid likely patient has a ruptured ovarian cyst Differential Diagnosis Differential Diagnoses: The differential diagnosis associated with the presentation includes Ruptured ovarian cyst/ovarian cyst/appendicitis/UTI/kidney stone Lab Data [facility] Lab Attestation statement: I reviewed the patient's lab results. 10/18/24 23:27 10/18/24 23:27 Labs: Lab Results 10/18/24 10/19/24 Range/Units 23:27 01:26 WBC 7.9 (4.8-10.8) X10*3/uL RBC 3.94 L (4.20-5.50) X10*6/uL Hgb 12.1 (12.0-16.0) g/dl Hct 35.0 L (37.0-47.0) % MCV 88.8 (80.0-98.0) fL MCH 30.7 (27.0-33.0) pg MCHC 34.6 (31.0-35.0) g/dl RDW 12.7 (11.0-16.0) % Plt Count 447 H (160-400) X10*3/uL MPV 9.1 L (9.4-12.3) fL Immature Gran % (Auto) 0.3 (0.0-0.4) % Neut % (Auto) 33.0 L (45-73) % Lymph % (Auto) 51.6 H (20-40) % [place] % (Auto) 8.3 (2-11) % Eos % (Auto) 6.4 H (0-4) % Baso % (Auto) 0.4 (0-2) % Lymph # (Auto) 4.1 (1.2-4.9) X10*3/uL [place] # (Auto) 0.7 (0.1-1.2) X10*3/uL Eos # (Auto) 0.5 H (0.0-0.4) X10*3/uL Baso # (Auto) 0.0 (0.0-0.2) X10*3/uL Abs Immat Gran (auto) 0.02 (0.00-0.03) X10*3/uL Absolute Neuts (auto) 2.6 (2.0-8.3) x10*3/uL Absolute Nucleated RBC 0.000 (0.0-0.012) X10*3/uL Nucleated RBC % (auto) 0.0 (0.0-0.2) /100WBC Sodium 139 (135-145) mmol/L Potassium 3.5 (3.3-5.1) mmol/L Chloride 108 (96-108) mmol/L Carbon Dioxide 22 (22-29) mmol/L Anion Gap 13 (12-20) BUN 7 L (9-16) mg/dL Creatinine 0.70 (0.5-1.4) mg/dL Estim Creat Clear Calc 141.7 Estimated GFR > 60 Random Glucose 96 (60-115) mg/dL Calcium 9.3 (8.4-10.2) mg/dL Total Bilirubin 0.2 (0.0-1.0) mg/dL AST 20 (5-31) U/L ALT 30 (0-31) U/L Alkaline Phosphatase 62 (39-117) U/L Total Protein 7.7 (6.5-8.0) g/dL Albumin 4.2 (3.5-5.0) g/dL Lipase 18 (8-78) U/L Urine Color Yellow Urine Appearance Clear Urine pH 5.5 (5.0-9.0) Ur Specific [place] <= 1.005 (1.005-1.025) Urine Protein Negative (Neg-Trace) mg/dL Urine Glucose (UA) Negative (Negative) mg/dL Urine Ketones Negative (Negative) mg/dL Urine Blood Negative (Negative) Urine Nitrite Negative (Negative) Ur Leukocyte Esterase Negative (Negative) Urine RBC 0-2 (0-2) /HPF Urine WBC 0-5 (0-5) /HPF Ur Squamous Epith Cells 0-2 (0-2) /HPF Urine Bacteria None Seen (None Seen) Hyaline Casts 0-2 (0-2) /LPF Urine Test NEGATIVE (NEGATIVE) Discharge Plan Discharge Clinical Impression: Pelvic pain Patient Disposition: Home, Self-Care Instructions: Pelvic Pain in Women (ED) Additional Instructions: Likely you add ruptured ovarian cyst no evidence of significant infection at this time no cyst was seen in ultrasound Take Tylenol/Motrin for pain as needed Prescriptions: No Action clindamycin phosphate 2 % cream 1 appful vaginal BEDTIME 7 Days Qty: 40 0RF ibuprofen 600 mg tablet 600 mg PO Q8H PRN (Reason: pain) Qty: 10 0RF Print Language: Bahamian
[2024-10-19 01:38] LABS: Appearance Urine Clear; Color Urine Yellow; Glucose Urine UA Negative (Negative); Leukocyte Esterase Urine Negative (Negative); Nitrite Urine Negative (Negative); PH 5.5 (5.0-9.0); Specific Gravity - Urine <= 1.005 (1.005-1.025); Urine Blood Negative (Negative); Urine Ketones Negative (Negative); Urine Protein Negative (Neg-Trace)
[2024-10-19 01:39] LABS: UPreg QC Valid YES; Urine Pregnancy NEGATIVE (NEGATIVE)
[2024-10-19 01:41] VITALS: BP 110/56; PULSE 87; RESP 16; TEMP 36.7; O2SAT 100
[2024-10-19 01:42] LABS: Bacteria Urine None Seen (None Seen); Hyaline Casts Urine 0-2 /LPF (0-2); RBC Urine 0-2 /HPF (0-2); Squamous Epithelial Cell Urine 0-2 /HPF (0-2); WBC Urine 0-5 /HPF (0-5)
[2024-10-19 01:56] VITALS: BP 110/56; PULSE 87; RESP 16; TEMP 36.7; O2SAT 100
== END 2024-10-19 01:56 | disposition home or self-care (01) ==
PROVIDERS: Emergency Provider Internal Medicine; PCP Pediatrics
DX: R10.2 Pelvic and perineal pain (principal); J45.909 Unspecified asthma, uncomplicated
CPT/HCPCS: 36415; 76830; 76856; 80053; 81001; 81025; 83690; 85025; 99284

== ENCOUNTER → 2024-10-19 | Outpatient (BNV) | payer SELFPAY | PROVIDERS: Emergency Provider Internal Medicine; PCP Pediatrics; Visit Provider Radiology Diagnostic Radiology | DX: R10.33 Periumbilical pain (principal) | CPT/HCPCS: 76830; 76856 ==

== ENCOUNTER 2024-12-26 13:34 | Emergency (ER) | payer OTHER, SELFPAY ==
--- NOTE | ~2024-12-26 | XR_ITS ---
EXAMINATION: XR CHEST 2 VIEWS HISTORY: SOB COMPARISON: Comparison is made with the prior examination dated 12/13/2023. FINDINGS: PA and lateral views of the chest are submitted. The lungs are expanded and clear. There is no pleural effusion, pneumothorax, or pulmonary vascular congestion. The heart is normal in size. Again seen is dextroscoliosis of the thoracic spine. XR/XR chest 2V IMPRESSION: No acute cardiopulmonary abnormality. Electronically signed by: Jone Henderson MD 12/26/2024 02:43 PM EDT
--- NOTE | 2024-12-26 13:37 | ECG_ITS ---
Test Reason : chest pain Blood Pressure : */* mmHG Vent. Rate : 93 BPM Atrial Rate : 93 BPM P-R Int : 126 ms QRS Dur : 76 ms QT Int : 352 ms P-R-T Axes : 56 67 34 degrees QTcB Int : 437 ms Normal sinus rhythm Normal ECG No previous ECGs available Referred By: Berta Obrien Electronically Signed By: GUY BARON
--- NOTE | 2024-12-26 14:06 | ED.CHESTPAIN ---
HPI - Chest Pain General Chief Complaint: Upper Respiratory Symptoms Stated Complaint: Chest Pain, Shortness of Breath Time Seen by Provider: 12/26/24 17:41 Source: patient Mode of arrival: ambulatory Limitations: no limitations History of Present Illness ED Provider: mireille snyder np HPI narrative: patient is a 19-year-old female with past medical history of asthma, presents to ED due to 4 days of nonproductive cough, intermittent SOB and chest tightness experienced only during cough /deep inspiration on occasion. States she used nebulizer 2x last night without effect, does not have home albuterol inhaler, and symptoms worsen at night time. Denies fevers, chills, headache, dizziness, neck pain, neck stiffness, sore throat, nausea, vomiting, abdominal pain, numbness or tingling of the extremities, genitourinary symptoms. Related Data Previous Rx's ?Medication ?Instructions ?Recorded clindamycin phosphate 2 % vaginal 1 appful vaginal BEDTIME 7 days 12/10/23 cream #40 grams ibuprofen 600 mg tablet 600 mg PO Q8H PRN pain #10 tabs 12/13/23 albuterol sulfate 90 mcg/actuation 2 puff inhalation Q4-6H PRN 12/26/24 aerosol inhaler shortness of breath or wheezing #6.7 grams prednisone 20 mg tablet 40 mg (2 x 20 mg) PO DAILY #6 tabs 12/26/24 Allergies Allergy/AdvReac Type Severity Reaction Status Date / Time blue dye [BLUE DYE] Allergy Unknown UNKNOWN Verified 12/26/24 14:08 nut - unspecified [nut] Allergy Unknown UNKNOWN Verified 12/26/24 14:08 pistachio nut [PISTACHIO] Allergy Unknown UNKNOWN Verified 12/26/24 14:08 Review of Systems Review of Systems: Yes all other systems are reviewed and are negative PMFSH Past Medical History Attestation statement: The following information was validated with the patient. Source: old records reviewed Medical History Asthma Eczema Family History Family History Father Asthma Mother Asthma Sister Asthma Social History Social History Household Members: Family Housing: Apartment Alcohol intake: never Patient Tobacco Use Status: Never used Tobacco Advance Directives: No Advance Directives Information Provided: No service: Yes Current occupational status: employed Current occupation: [employer] Sexual orientation: Straight/Heterosexual Gender identity: Female Physical Exam Vital Signs: Vital Signs: Last Vital Signs Temp 97.0 F 12/26/24 18:09 Pulse 89 12/26/24 18:09 Resp 18 12/26/24 18:09 BP 128/62 12/26/24 18:09 Pulse Ox 100 12/26/24 18:09 O2 Del Method Room Air 12/26/24 18:09 BMI result Body Mass Index 31.0 Appearance: Alert.?Oriented to person, place and time. No acute distress.?Normal affect. Eyes: Pupils equal, round and reactive to light.? ENT: TM normal bilaterally. Pharynx normal.?? Neck: Normal inspection.? Neck supple.??No cervical adenopathy CVS: Heart sounds normal. Normal heart rate and rhythm.? Pulses normal.?? Respiratory: No respiratory distress.? Lung sounds clear to auscultation bilaterally?? Abdomen: Soft and non-tender. Normoactive bowel sounds. Skin: Skin warm and dry.? Normal skin color.? ? Extremities: No lower extremity edema.? Neuro: Moves all extremities spontaneously. Sensation intact bilaterally. No motor deficits. Ambulates with normal steady gait. Medical Decision Making Medical Decision Making MDM Narrative: Patient is a 19-year-old female with past medical history of asthma, atopic dermatitis, presenting for evaluation of cough or shortness of breath and chest pain as per HPI. COVID-19 /influenza/RSV testing is negative. Chest x-ray is without consolidation infiltrate to suggest pneumonia, EKG is nonischemic revealing a normal sinus rhythm with ventricular rate of 93, QTC 437, no ST-elevation, not consistent with ACS. Wells score low risk, unlikely pulmonary embolism. Well-appearing, nontoxic, afebrile, no tachycardia or tachypnea/hypoxia. Speaking clear full sentences, ambulatory with steady gait. Symptoms most consistent with bronchitis, early asthma exacerbation, sent prescription for albuterol inhaler as well as prednisone to pharmacy, Discussed conservative treatment including rest, hydration, Tylenol/ibuprofen as needed for fever and body aches, saline nasal spray, humidifier, [id number] cold medication. Advised to follow-up with primary care provider as needed, discussed reasons to return back to the emergency department. All questions were answered. Patient discharged home in stable condition. Differential Diagnosis Differential Diagnoses: The differential diagnosis associated with the presentation includes ( see narrative above) Admission/Observation Consideration of admission/observation: Escalation of care including admission/observation considered ( see narrative above) Lab Data MDM Lab Attestation statement: I reviewed the patient's lab results. ( see narrative above) Labs: Lab Results 12/26/24 Range/Units 14:18 Influenza Type A (PCR) NEGATIVE (Negative) Influenza Type B (PCR) NEGATIVE (Negative) RSV RNA Qual (PCR) NEGATIVE (Negative) SARS-CoV-2 RNA (RT-PCR) NEGATIVE (Negative) Independent Interpretation I performed an independent interpretation of an: EKG ( see narrative above) and Plain X-Ray ( see narrative above) Radiology Impression Discussion of test interpretation with radiology: I have reviewed the radiologist's reading. Radiologist Impression: XR/XR chest 2V IMPRESSION: No acute cardiopulmonary abnormality. External Record Review External record reviewed: Outpatient record Chronic Conditions Patient?s care impacted by: Other ( see narrative above) Discharge Plan Discharge Clinical Impression: Bronchitis Patient Disposition: Home, Self-Care Instructions: Acute Bronchitis (ED) Additional Instructions: chest x-ray today does not show evidence of pneumonia or infection, testing for COVID/flu/ RSV is negative prescription for prednisone as well as an albuterol inhaler has been sent to your pharmacy. Take the prednisone daily with food to prevent stomach upset. Follow-up with your primary care doctor. Return to emergency department any new or worsening symptoms or concerns Prescriptions: New albuterol sulfate 90 mcg/actuation HFA aerosol inhaler 2 puff inhalation Q4-6H PRN (Reason: shortness of breath or wheezing) Qty: 6.7 0RF prednisone 20 mg tablet 40 mg PO DAILY Qty: 6 0RF No Action clindamycin phosphate 2 % cream 1 appful vaginal BEDTIME 7 Days Qty: 40 0RF ibuprofen 600 mg tablet 600 mg PO Q8H PRN (Reason: pain) Qty: 10 0RF Referrals: Gee Ryan MD [Primary Care Provider] - Stand Alone Forms: Work/School Release Interventions: ED Discharge Assessment Last Done: 12/26/24 18:09 Discharge Date/Time: 12/26/24 18:09 Print Language: [place] Arabian
[2024-12-26 14:07] VITALS: BP 131/68; PULSE 88; RESP 18; TEMP 36.9; O2SAT 100; BMI 31.0
[2024-12-26 15:09] LABS: Influenza A PCR NEGATIVE (Negative); Influenza B PCR NEGATIVE (Negative); Resp Syncy Virus RNA Qual PCR NEGATIVE (Negative); SARS COV2 PCR INHOUSE NEGATIVE (Negative)
[2024-12-26 17:38] VITALS: BP 128/62; PULSE 89; RESP 18; TEMP 36.1; O2SAT 100
--- OUTSIDE RECORDS SUMMARY | 2024-12-26 17:45 | XMS_ITS | Encounter Summary ---
Author Organization [facility] Address [address] [place] [address] Phone Care Team Providers Care Registered Dietician Name Role Phone Kirstin Fernández NP Primary Care Provider Reason for Visit * Reason Comments Med Refill Encounter Details Date Type Department Care Team (Late st Contact Info) Description 03/25/2018 Refill [facility] [facility] [place] [address] [place] [address] Katharine Carvajal NP Intrinsic eczema Social History Tobacco Use Types Packs/Day Years Used Date Smoking Tobacco: Never Smokeless Tobacco: Never Comments Unknown Sex and Gender Information Value Date Recorded Sex Assigned at Female 03/04/2020 5:36 PM EDT Legal Sex Female 5:20 PM EDT Gender Identity Female 03/04/2020 5:36 PM EDT Sexual Orientation Straight 03/04/2020 5: 36 PM EDT documented as of this encounter Miscellaneous Notes * Telephone Encounter - Nicole Solano LPN - 03/25/2018 12:26 PM EDT LM PCP BLL: pharm fax refill request triamcinolone 0.1 % cream. I called mom as pt was supposed to have seen derm. appts on 10/11 and 11/27 were cancelled and appt on 01/17 was a no show. Advised mom since Skylar is not in, another May not want to fill until she isseen by derm since that was the recommendation. I sched pt for 05/02 to see derm. Telling mom I would put the refill request to another Dr. Mom understands if it is not filled, she will clam picker something OTC until derm appt. EH documented in this encounter Plan of Treatment Not on file documented as of this encounter Visit Diagnoses Diagnosis Intrinsic eczema documented in this encounter Care Teams Registered Dietician Relationship Specialty Start Date End Date Kirstin Fernández NP [address] [place] [id number] PCP - General Pediatrics 05/15/24 12/10/24 documented as of this encounter
--- OUTSIDE RECORDS SUMMARY | 2024-12-26 17:45 | XMS_ITS | Encounter Summary ---
Author Organization [facility] Address [address] [place] [address] Phone Care Team Providers Care Business Account Manager Name Role Phone Kirstin Fernández NP Primary Care Provider [phone] Encounter Details Date Type Department Care Team (Late st Contact Info) Description 04/07/2014 Documentation [facility] [place] Family Medicine [address] [place] [address] Family Medicine, Physician [facility] [place] [id number] Social History Tobacco Use Types Packs/Day Years Used Date Smoking Tobacco: Never Assessed Comments Unknown Sex and Gender Information Value Date Recorded Sex Assigned at Female 03/04/2020 5:36 PM EDT Legal Sex Female 5:20 PM EDT Gender Identity Female 03/04/2020 5:36 PM EDT Sexual Orientation Straight 03/04/2020 5: 36 PM EDT documented as of this encounter Plan of Treatment Not on file documented as of this encounter Visit Diagnoses Not on filedocumented in this encounter Care Teams Business Account Manager Relationship Specialty Start Date End Date Kirstin Fernández NP [address] [place] [address] [place] [address] PCP - General Pediatrics 05/15/24 12/10/24 documented as of this encounter
--- OUTSIDE RECORDS SUMMARY | 2024-12-26 17:45 | XMS_ITS | Encounter Summary ---
Author Organization [facility] Address [address] [place] [address] Phone Care Team Providers Care Track Watchman Name Role Phone Kirstin Fernández NP Primary Care Provider [phone] Reason for Visit * Reason Comments Med Refill Encounter Details Date Type Department Care Team (Late st Contact Info) Description 04/19/2024 Refill [facility] [place] [address] [place] [address] Gee Ryan MD [address] [place] [address] Vitamin D deficiency Social History Tobacco Use Types Packs/Day Years Used Date Smoking Tobacco: Never Smokeless Tobacco: Never Hunger/Food Answer Date Recorded In the last 12 months, did y ou or your family ever eat less than you felt you should because there wasn't enough money for food? No 03/04/2024 Stable Housing Answer Date Recorded Are you worried that in the next 2 months you may not have stable housing? No 03/04/2024 Transportation Concerns Answer Date Rec orded In the last 12 months, have you or your family ever had to go without healthcare because you didn't have a way to get there? No 03/04/2024 Hazards in Home Answer Date Recorded Think about the place you li ve. Do you have problems with any of the following? Pests (mice or roaches), mold, no/not working smoke detectors, water leaks, no window guards. No 2023 Financing Utilities Answer Date Recorde d In the last 12 months, has t he electric, gas, oil, or water company threatened to shut off your services in your home? No 03/04/2024 Safety at Home Answer Date Recorded Are you or your family worried about feeling saf e in your home? No 03/04/2024 Outside Support Answer Date Recorded Do you feel that you need mo re support from other people or programs to help you care for yourself or your family? No 03/04/2024 Understanding Health Concerns Answer Da te Recorded Do you need help understandi ng your or your child's healthcare needs (diagnosis, medications, plan, etc.)? No 03/04/2024 Financing Health Concerns Answer Date R ecorded In the last 12 months, was t here a time when your child needed to see a doctor or get medications or supplies but could not because of cost? No 03/04/2024 Missing School or Work Answer Date Jerome rded Did you or your child miss s chool or work because of a health problem that could have been avoided? No 03/04/2024 Child Education Answer Date Recorded Do you have concerns about y our/your child's learning or behavior in school, preschool, or daycare? No 03/04/2024 Comments No Sex and Gender Information Value Date Recorded Sex Assigned at Female 03/04/2020 5:36 PM EDT Legal Sex Female 5:20 PM EDT Gender Identity Female 03/04/2020 5:36 PM EDT Sexual Orientation Straight 03/04/2020 5: 36 PM EDT documented as of this encounter Miscellaneous Notes * Telephone Encounter - Adriana Maurer LPN - 04/20/2024 10:06 AM EDT Prescription was sent on 03/04/24 with 4 refills documented in this encounter Plan of Treatment Not on file documented as of this encounter Visit Diagnoses Diagnosis Vitamin D deficiency documented in this encounter Care Teams Track Watchman Relationship Specialty Start Date End Date Kirstin Fernández NP [address] [place] [id number] PCP - General Pediatrics 05/15/24 12/10/24 documented as of this encounter
--- OUTSIDE RECORDS SUMMARY | 2024-12-26 17:45 | XMS_ITS | Clinical Summary ---
Author Organization [facility] Address [address] [place] [address] Phone Care Team Providers Care Program Manager Rn Name Role Phone Unavailable Primary Care Provider Unavailabl e Allergies Active Allergy Reactions Criticality Noted Date Comments Amyl Nitrite Metal Blue Dyes (Parenteral) 11/19/2018 Dust Mite Extract Food Rash Low Pistachios Medications mometasone 0.1 % ointment 9 Active clobetasol 0.05 % ointmentIndication s:Intrinsic atopic dermatitis Apply sparingly to severely affected areas twice daily for two weeks only, then two weeks off. 30 g 2 0 Active triamcinolone 0.1 % creamIndications:I ntrinsic atopic dermatitis Mix at home with one lb jar of Cerave Cream and apply twice daily all over. 80 g 3 1 Active clindamycin 1 % gel APPLY TO FACE EVERY MORNING AFTER BENZOYL PEROXIDE WASH 2 Active Eucrisa 2 % ointment 2 Active tacrolimus 0.1 % ointment APPLY TO ANKLES AND ARMS TWICE A DAY 2 Active triamcinolone 0.1 % ointment APPLY TO TRUNK, ARMS, LEGS TWICE DAILY. NEEDED FOR ITCH 2 Active fluticasone HFA (Flovent HFA) 110 MCG/ACT inhalerIndications :Mild persistent asthma with acute exacerbation Inhale 2 puffs 2 (two) times a day. Rinse mouth with water after use, do not swallow. 1 Units 11 3 Active EpiCeram lotion APPLY TO BODY 4 TIMES DAILY 3 Active naproxen 500 MG tablet 3 Active Dupixent 300 MG/2ML solution pen-injector 3 Active fluocinonide 0.05 % cream APPLY TO ITCHY AREAS ON ARMS, LEGS, TRUNK TWICE A DAY NEEDED FOR ITCH 3 Active ibuprofen 600 MG tablet TAKE 1 TABLET (600 MG) ORALLY EVERY 8 HOURS NEEDED FOR PAIN 4 Active norethindrone-ethi nyl estradiol-iron () 1.5-30 MG-MCG per tabletIndications: Encounter for initial prescription of contraceptives, unspecified contraceptive Take 1 tablet by mouth once daily. 84 tablet 4 4 Active Mometasone Furoate (Asmanex HFA) 100 MCG/ACT aerosolIndications :Mild persistent asthma without complication 2 puffs bid to prevent asthma symptoms. Rinse mouth after using. 13 g 11 4 Active cyproheptadine 4 MG tabletIndications: Migraine without aura and without status migrainosus, not intractable TAKE 1 TABLET BY MOUTH EVERY DAY AT BEDTIME TO PREVENT HEADACHES, MAY INCREASE TO TWICE DAILY IF TOLERATED 60 tablet 5 4 Active cholecalciferol 50 MCG (2000 UT) capsuleIndications :Vitamin D deficiency TAKE 1 CAPSULE BY MOUTH EVERY DAY 90 capsule 1 5 Active Ventolin HFA 108 (90 Base) MCG/ACT inhalerIndications :Mild intermittent asthma without complication TAKE 2 PUFFS BY MOUTH EVERY 4 HOURS NEEDED FOR WHEEZE 18 g 5 Active Active Problems Problem Noted Date Diagnosed Date Encounter for initial prescription of contracept catarino 09/21/2022 Assessment & Plan (03/04/2024 1:59 PM EDT): Doing well on current OCP, needs a refill. Assessment & Plan (09/21/2022 2:41 PM EST): Started on OCP, recheck in 3 months- Discussed - not a smoke, no family hx of blood clots. Not sexually active but interested due to heavy menses and cramping. COVID-19 vaccine dose declined 09/21/2022 Assessment & Plan (09/21/2022 2:12 PM EST): Encouraged to return, call or message with questions Refused influenza vaccine 09/21/2022 BMI 34.0-34.9,adult 12/04/2018 Assessment & Plan (09/21/2022 2:10 PM EST): Nutrition referral to Tegan Cho RD - repeat labs today. Intrinsic atopic dermatitis 09/29/2013 Overview (07/23/2023): 08/11 - seen again by derm and started on Dupixent. DPN Assessment & Plan (03/04/2024 2:36 PM EDT): Followed by dermatology, dupixent q2 weeks and multiple topical preps. Tristandesireearnol notes that her skin is smoother since starting dupixent. Assessment & Plan (09/21/2022 2:37 PM EST): Seeing Derm, on Dupixent. Asked pt to have derm send us note with next f/u visit. Assessment & Plan (05/30/2019 5:16 PM EDT): Chronic and severe with current flare- out of steroid ointment. Triamcinolone o.1% ointment refilled. Discussed possible allergy consult, ? Helpfulness of AIT, and f/up with Ivanna Ledesma. Pt to see PCP for WCC next month. Assessment & Plan (09/07/2017 11:11 AM EST): You were seen in the [facility] ER for worsening axillary eczema a few weeks ago and you were given a small tube of triamcinolone. You used to be seen by a brooch maker novelty in [facility]. She has had such bad eczema that she has needed both injected and po steroids. Pt has seen an shipping/receiving clerk and is allergic to blue dye, ha, dust. Mom says you use cetaphil, CeraVE and have benefitted from triamcinolone 0.1% cream. I have given you a handout about making fluff from a combination of Cera Ve and triamcinolone and recommended you followup with Mary Machado here in our office in the next 1-2 months. Mild persistent asthma without complication 11/19 Assessment & Plan (03/04/2024 1:58 PM EDT): Doing well with asmanex twice daily; used albuterol recently due to humid weather, but overall doing well. No concerns today. Needs refill. Assessment & Plan (09/21/2022 1:56 PM EST): occ inhaler use, doesn't have one now. Assessment & Plan (07/19/2022 12:11 PM EST): Has been off Flovent for a long time. Denies any current issues with her asthma. Requesting refill of albuterol. Resolved Problems Problem Noted Date Diagnosed Date Resolved Date Febrile seizure 12/15/2009 03/04/2020 Encounters Date Type Department Care Team Description 10/22/2024 Telephone [facility] [place] [address] Nicole Solano LPN ER f/u 10/18/2024 11:16 PM EST - 10/19/2024 1:56 AM EST Emergency [facility] - Patient Ping from Last 3 Months Immunizations Immunization Administration Dates Next Due COVID-19 Pfizer, bivalent, 12+ years 11/06/2022 DTaP 5 11/26/2007, 5,07/12/2004,03/28,01/25/2004 HPV Vaccine 9 Valent 05/15/2016,09/15/2015 Hep A, ped/adol 05/15/2016,09/15/2015 Hep B, ped/adol 12/14/2004,07/12/2004,2003 Hib (HbOC) 03/28/2005, 4,03/28/2004,01/24 IPV 11/26/2007, 5,03/28/2004,01/24 Influenza, injectable, quadrivalent 05/15/2016 Influenza, injectable, quadr ivalent, preservative free 06/20/2019,09/24/2017 Influenza, injectable, trivalent 06/30/2005,05/20 MMR 11/26/2007,12/14/2004 Meningococcal B Trumenba 09/21/2022 Meningococcal Conj (Menactra) MCV4P 03/04/2020,0 09/15/2015 Pneumococcal Conjugate 03/28/2005,2003,03/28/2004,01/24 Tdap 09/15/2015 Varicella 11/26/2007,12/14/2004 Family History Medical History Relation Name Comments Autism Brother Maninder Asthma Father Maninder Hartley Hyperlipidemia Father Manindersammy Hartley Hypertension Father Manindersammy Hartley Asthma Mother Jessica Autism Sister 1 Arleenkatia Hernándezarado Seizures Sister 1 Arleenkatia Hernándezarado No Known Problems Sister 2 Adalcalvin Hartley Relation Name Status Comments Brother Maninder Alive Brother: Autism Father Manindersammy Hartley Alive Father: A sthma Mother Jessica Alive Mother: Asthma Other Family history of Asthma, No family history of Cancer, Family history of Hyperlipidemia, Family history of Elevated cholesterol Sister 1 Arleenkatia Hernándezarado Alive Sister 2 Richard Hartley Alive Social History Tobacco Use Types Packs/Day Years [...] Orientation Straight 03/04/2020 5: 36 PM EDT Last Filed Vital Signs Vital Sign Reading Time Taken Comments Blood Pressure 128/71 03/04/2024 1:17 PM EDT Pulse 99 03/04/2024 1:17 PM EDT Temperature 36.5 ??C (97.7 ??F) 03/04/2024 1:17 PM ED T Respiratory Rate 16 06/20/2019 8:57 AM EDT Oxygen Saturation 100% 11/06/2022 2:47 PM EDT Inhaled Oxygen Concentration - - Weight 92.1 kg (203 lb) 03/04/2024 1:17 PM EDT Height 167.6 cm (5' 6 ) 03/04/2024 1:17 PM EDT Body Mass Index 32.77 03/04/2024 1:17 PM EDT Plan of Treatment Health Maintenance Due Date Last Done Comments Men B Vaccine (2 of 2 - Trum enba SCDM 2-dose series) 03/21/2023 09/21/2022 Influenza Vaccines (#1) 2024 06/20/20 19, 09/24/2017, 05/15/2016, Additional history exists COVID-19 Vaccine (4 - 2023-2 5 season) 2024 11/06/2022, 10/25/2021, 10/04/2021 Chlamydia and Gonorrhea Screening 08/20/2024 03/04/2024, 09/21/2022, 03/15/2021, Additional history exists DTaP,Tdap,and Td Vaccines (7 - Td or Tdap) 09/15/2025 09/15/2015, 11/26/2007, 05/30/2005, Additional history exists Hepatitis B Vaccines Completed 12/14/2004, 07/12/2004, 2003 HIB Vaccines Completed 03/28/2005, 06/21, 03/28/2004, Additional history exists Pneumococcal Vaccine Completed 03/28/2005, 07/12/2004, 03/28/2004, Additional history exists IPV Vaccines Completed 11/26/2007, 11/19, 03/28/2004, Additional history exists MMR Vaccines Completed 11/26/2007, 12/14/2004 Varicella Vaccines Completed 11/26/2007, 12/14/2004 HPV Vaccines Completed 05/15/2016, 09/15/2015 Hepatitis A Vaccines Completed 05/15/2016, 09/15/19 16 Meningococcal Vaccine Completed 03/04/2020, 016 Procedures * Due to [place] Outcome Referrals law, this organization might not be sharing sensitive test results. Procedure Name Priority Date/Time Associated Diagnosis Comments CHLAMYDIA AND GONORRHEA, AMPLIFIED Routine 03/04/2024 1:34 PM EDT Screening for chlamydial disease from Last 3 Months or Most Recently Relevant to Health Maintenance Results * Due to [place] Outcome Referrals law, this organization might not be sharing sensitive test results. * Chlamydia and Gonorrhoea, Amplified (03/04/2024 1:34 PM EDT) C trach STEPHANIE Negative Negative [facility] N gonorrhoeae STEPHANIE Negative Negative [facility] Urine (Urine) 03/04/2024 1:3 4 PM EDT 03/04/2024 Comment:UR Narrative [facility] - 03/05/2024 3:06 PM EDT Performed at: ??01 - [facility] [address], [address], [place] ??[id number] Prison Librarian: Zachary Byers MD, Phone: ??[phone] Kirstin Fernández NP LAB MICROBIOLOGY - GENERAL ORDER TAMERA Final Result [facility] [address] [place] [address] from Last 3 Months or Most Recently Relevant to Health Maintenance
--- OUTSIDE RECORDS SUMMARY | 2024-12-26 17:45 | XMS_ITS | Encounter Summary ---
Author Organization [facility] Address [address] [place] [address] Phone Care Team Providers Care Biofuels Technology Manager Name Role Phone Kirstin Fernández NP Primary Care Provider [phone] Reason for Visit * Reason Comments Med Refill Encounter Details Date Type Department Care Team (Late st Contact Info) Description 05/15/2024 Refill [facility] [place] [address] [place] [address] Gee Ryan MD [address] [place] [address] Vitamin D deficiency Social History Tobacco Use [...] encounter Miscellaneous Notes * Telephone Encounter - Onelia Amor RN - 05/15/2024 10:56 AM EDT Pharm requesting med refill of Vit. D documented in this encounter Plan of Treatment Not on file documented as of this encounter Visit Diagnoses Diagnosis Vitamin D deficiency documented in this encounter Care Teams Biofuels Technology Manager Relationship Specialty Start Date End Date Kirstin Fernández NP [address] [place] [address] PCP - General Pediatrics 05/15/24 12/10/24 documented as of this encounter
--- OUTSIDE RECORDS SUMMARY | 2024-12-26 17:45 | XMS_ITS | Encounter Summary ---
Author Organization [facility] Address [address] [place] [address] Phone Care Team Providers Care Clam Digger Name Role Phone Kirstin Fernández NP Primary Care Provider [phone] Encounter Details Date Type Department Care Team (Late st Contact Info) Description 11/01/2011 Documentation [facility] [place] [address] [place] [address] Family Medicine, Physician [facility] [place] [id number] Social History Tobacco Use Types Packs/Day Years [...] on filedocumented in this encounter Care Teams Clam Digger Relationship Specialty Start Date End Date Kirstin Fernández NP [address] [place] [address] [place] [address] PCP - General Pediatrics 05/15/24 12/10/24 documented as of this encounter
--- OUTSIDE RECORDS SUMMARY | 2024-12-26 17:45 | XMS_ITS | Encounter Summary ---
Author Organization [facility] Address [address] [place] [address] Phone Care Team Providers Care Manager Intensive Care Name Role Phone Kirstin Fernández NP Primary Care Provider [phone] Encounter Details Date Type Department Care Team (Late st Contact Info) Description 04/05/2017 Conversion Encounter [facility] [place] [facility] [address] [place] [address] Social History Tobacco Use Types Packs/Day Years [...] on filedocumented in this encounter Care Teams Manager Intensive Care Relationship Specialty Start Date End Date Kirstin Fernández NP [address] [place] [address] PCP - General Pediatrics 05/15/24 12/10/24 documented as of this encounter
[2024-12-26 18:09] VITALS: BP 128/62; PULSE 89; RESP 18; TEMP 36.1; O2SAT 100
== END 2024-12-26 18:09 | disposition home or self-care (01) ==
PROVIDERS: Nurse Practitioner Family; Emergency Provider Emergency Medicine Emergency Medical Services; PCP Pediatrics
DX: J40 Bronchitis, not specified as acute or chronic (principal); R06.02 Shortness of breath; R05.9 Cough, unspecified; Z79.899 Other long term (current) drug therapy; Z03.818 Encounter for observation for suspected exposure to other biological agents ruled out
CPT/HCPCS: 0241U; 71046; 93005; 99283

== ENCOUNTER → 2024-12-26 13:37 | Outpatient (BNV) | payer SELFPAY | PROVIDERS: Emergency Provider Emergency Medicine Emergency Medical Services; PCP Pediatrics; Visit Provider Internal Medicine | DX: R07.9 Chest pain, unspecified (principal) | CPT/HCPCS: 93010 ==

== ENCOUNTER → 2024-12-26 14:09 | Outpatient (BNV) | payer SELFPAY | PROVIDERS: PCP Pediatrics; Visit Provider Radiology Diagnostic Radiology | DX: R06.02 Shortness of breath (principal) | CPT/HCPCS: 71046 ==